=== PATIENT | male | born 1990 | race Caucasian/White ===

== ENCOUNTER 2017-03-27 19:18 | Emergency (ER) | payer SELFPAY ==
[2017-03-27] MEDS ORDERED: Sodium Chloride 0.9% 5 ML Syringe FLUSH PRN (19:43)
[2017-03-27] MEDS ORDERED: Sodium Chloride 0.9% 1,000 ML IV ONE (19:43)
--- NOTE | 2017-03-27 19:48 | EDM.PDOC ---
ED HPI GENERAL MEDICAL PROBLEM - General Chief Complaint: Syncope Stated Complaint: SYNCOPAL EPISODE Time Seen by Provider: 03/27/17 19:30 Source of Information: Reports: Patient, EMS History Limitations: Reports: No Limitations - History of Present Illness INITIAL COMMENTS - FREE TEXT/NARRATIVE: 26 YO WM presents to ER after syncopal episode while working today. 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 Pt denies any pain or injury at this time. Pt denies chest pain, shortness of breath, nausea/vomiting or recent illness. Pt denies fever/chills but states he has had a cough for the last 3 days. Onset: Today Duration: Hour(s): (1) Location: Reports: Generalized Severity: Mild Improves with: Reports: None Worsens with: Reports: None Associated Symptoms: Reports: Cough, Syncope, Weakness. Denies: Confusion, Chest Pain, cough w sputum, Diaphoresis, Fever/Chills, Loss of Appetite, Nausea/ Vomiting, Seizure, Shortness of Breath - Related Data Allergies Allergy/AdvReac Type Severity Reaction Status Date / Time No Known Allergies Allergy Verified 03/27/17 20:21 Home Meds: Home Meds . [No Known Home Meds] 07/31/14 [History] Past Medical History - Past Health History Medical/Surgical History: Denies Medical/Surgical History Social & Family History - Tobacco Use Smoking Status *Q: Never Smoker - Alcohol Use Days Per Week of Alcohol Use: 0 - Recreational Drug Use Recreational Drug Use: No ED ROS GENERAL - Review of Systems Review Of Systems: See Below Constitutional: Reports: No Symptoms HEENT: Reports: No Symptoms Respiratory: Reports: No Symptoms Cardiovascular: Reports: No Symptoms Endocrine: Reports: No Symptoms GI/Abdominal: Reports: No Symptoms : Reports: No Symptoms Musculoskeletal: Reports: No Symptoms Skin: Reports: No Symptoms Neurological: Reports: Dizziness Psychiatric: Reports: No Symptoms Hematologic/Lymphatic: Reports: No Symptoms Immunologic: Reports: No Symptoms - Physical Exam Exam: See Below Exam Limited By: No Limitations General Appearance: Alert, WD/WN, No Apparent Distress Eye Exam: Bilateral Eye: EOMI, PERRL Ears: Normal External Exam, Normal Canal, Hearing Grossly Normal, Normal TMs Throat/Mouth: Normal Inspection, Normal Lips, Normal Teeth, Normal Gums, Normal Oropharynx, Normal Voice, No Airway Compromise Head Exam: Atraumatic, Normocephalic Neck: Normal Inspection, Supple, Non-Tender, Full Range of Motion Respiratory/Chest: No Respiratory Distress, Lungs Clear, Normal Breath Sounds, No Accessory Muscle Use, Chest Non-Tender Cardiovascular: Normal Peripheral Pulses, Regular Rate, Rhythm, No Edema, No Gallop, No JVD, No Murmur, No Rub GI/Abdominal: Normal Bowel Sounds, Soft, Non-Tender, No Organomegaly, No Distention, No Abnormal Bruit, No Mass Neuro Exam (Abbreviated): Alert, Oriented, CN II-XII Intact, Normal Cognition, Normal Gait, Normal Reflexes, No Motor/Sensory Deficits Back Exam: Normal Inspection, Full Range of Motion, NT Extremities: Normal Inspection, Normal Range of Motion, Non-Tender, No Pedal Edema, Normal Capillary Refill Psychiatric: Normal Affect, Normal Mood Skin Exam: Warm, Dry, Intact, Normal Color, No Rash EKG INTERPRETATION EKG Date: 03/27/17 Time: 20:06 Rhythm: NSR Rate (Beats/Min): 88 [place]: Normal P-Wave: Present QRS: Normal ST-T: Normal QT: Normal Comparison: NA - No Prior EKG Course - Vital Signs Last Recorded V/S: Last Vital Signs Temp 37.7 C 03/27/17 20:22 Pulse 95 03/27/17 19:57 Resp 14 03/27/17 19:57 BP 146/85 H 03/27/17 19:57 Pulse Ox 99 03/27/17 19:57 - Orders/Labs/Meds Orders: Active Orders 24 hr Category Date Time Status EKG Documentation Completion [RC] ASDIRECTED Care 03/27/17 19:43 Active Peripheral IV Care [RC] . DIRECTED Care 03/27/17 19:43 Active Chest 2V [CR] Stat Exams 03/27/17 19:43 Taken Head wo Cont [CT] Stat Exams 03/27/17 19:43 Taken INFLUENZA A+B AG SCREEN [RM] Stat Lab 03/27/17 20:18 Ordered Sodium Chloride 0.9% [Syrex Flush] Med 03/27/17 19:43 Active 5 ml FLUSH Q8HR PRN Peripheral IV Insertion Adult [OM.PC] Routine Oth 03/27/17 19:43 Ordered EKG 12 Lead [EK] Routine Ther 03/27/17 19:43 Ordered Medication Orders Sodium Chloride (Syrex Flush) 5 ml FLUSH Q8HR PRN PRN Reason: Keep Vein Open Labs: Laboratory Tests 03/27/17 03/27/17 03/27/17 Range/Units 19:15 19:15 19:43 WBC 7.0 (5.0-10.0) 10^3/uL RBC 5.27 (4.50-6.00) 10^6/uL Hgb 14.8 (13.0-17.0) g/dL Hct 44.3 (40.0-52.0) % MCV 84.0 (82.0-92.0) fL MCH 28.0 (27.0-31.0) pg MCHC 33.4 (32.0-36.0) g/dL RDW 12.3 (11.5-14.5) % Plt Count 252 (150-300) 10^3/uL MPV 8.1 (7.4-10.4) fL Neut % (Auto) 54.3 (50.0-70.0) % Lymph % (Auto) 35.4 (20.0-40.0) % [place] % (Auto) 7.8 (2.0-8.0) % Eos % (Auto) 2.2 (1.0-3.0) % Baso % (Auto) 0.3 (0.0-1.0) % Neut # (Auto) 3.8 (2.5-7.0) 10^3/uL Lymph # (Auto) 2.5 (1.0-4.0) 10^3/uL [place] # (Auto) 0.5 (0.1-0.8) 10^3/uL Eos # (Auto) 0.2 (0.1-0.3) 10^3/uL Baso # (Auto) 0.0 (0.0-0.1) 10^3/uL Sodium 141 (136-145) mmol/L Potassium 3.4 (3.3-5.3) mmol/L Chloride 103 (98-115) mmol/L Carbon Dioxide 28.0 (21.0-32.0) mmol/L BUN 13 (6-25) mg/dL Creatinine 0.81 (0.51-1.17) mg/dL Est Cr Clr Drug Dosing TNP Estimated GFR (MDRD) > 60 mL/min Glucose 87 (70-110) mg/dL Calcium 8.9 (8.7-10.3) mg/dL Creatine Kinase 235 (26-276) U/L CK-MB (CK-2) 1.40 (0.00-4.30) ng/mL Troponin I < 0.04 (0.00-0.070) ng/mL Urine Opiates Screen Negative (NEGATIVE) Ur Oxycodone Screen Negative (NEGATIVE) Urine Methadone Screen Negative (NEGATIVE) Ur Propoxyphene Screen Negative (NEGATIVE) Ur Barbiturates Screen Negative (NEGATIVE) Ur Tricyclics Screen Negative (NEGATIVE) Ur Phencyclidine Scrn Negative (NEGATIVE) Ur Amphetamine Screen Negative (NEGATIVE) U Methamphetamines Scrn Negative (NEGATIVE) U Benzodiazepines Scrn Negative (NEGATIVE) U Cocaine Metab Screen Negative (NEGATIVE) U Marijuana (THC) Screen Negative (NEGATIVE) Meds: Medications Generic Name Dose Route Start Last Admin Trade Name Freq PRN Reason Stop Dose Admin Sodium Chloride 5 ml 03/27/17 19:43 Syrex Flush FLUSH Q8HR PRN Keep Vein Open Discontinued Medications Generic Name Dose Route Start Last Admin Trade Name Freq PRN Reason Stop Dose Admin Sodium Chloride 1,000 mls @ 999 mls/hr 03/27/17 19:43 Normal Saline IV 03/27/17 20:43 .BOLUS ONE - Radiology Interpretation Free Text/Narrative:: CT head- NAD CXR- NAD - Re-Assessments/Exams Free Text/Narrative Re-Assessment/Exam: 03/27/17 20:44 influenza A and B- negative Departure - Departure Time of Disposition: 20:44 Disposition: Home, Self-Care 01 Condition: Good Clinical Impression: Syncope Qualifiers: Encounter type: initial encounter - Discharge Information Instructions: Syncope, [id number] Referrals: PCP,Not In Area [Primary Care Provider] - Forms: ED Department Discharge - My Orders Last 24 Hours: My Active Orders 03/27/17 19:43 EKG Documentation Completion [RC] ASDIRECTED Peripheral IV Care [RC] . DIRECTED Chest 2V [CR] Stat Head wo Cont [CT] Stat Sodium Chloride 0.9% [Syrex Flush] 5 ml FLUSH Q8HR PRN Peripheral IV Insertion Adult [OM.PC] Routine EKG 12 Lead [EK] Routine 03/27/17 20:18 INFLUENZA A+B AG SCREEN [RM] Stat - Assessment/Plan Last 24 Hours: My Active Orders 03/27/17 19:43 EKG Documentation Completion [RC] ASDIRECTED Peripheral IV Care [RC] . DIRECTED Chest 2V [CR] Stat Head wo Cont [CT] Stat Sodium Chloride 0.9% [Syrex Flush] 5 ml FLUSH Q8HR PRN Peripheral IV Insertion Adult [OM.PC] Routine EKG 12 Lead [EK] Routine 03/27/17 20:18 INFLUENZA A+B AG SCREEN [RM] Stat Assessment:: 1. Syncope Plan: 1. follow up with PCP for further evaluation and treatment 2. discharge home 3. return to ER for worsening symptoms
[2017-03-27 20:12] LABS: CHLORIDE,CL 103 mmol/L (98-115); SODIUM,NA 141 mmol/L (136-145)
[2017-03-27 20:16] VITALS: BP 146/85
== END 2017-03-27 21:00 | disposition home or self-care (01) ==
LOC: KA.ED 19:18
DX: R55 Syncope and collapse (principal)
CPT/HCPCS: 70450; 71046; 80048; 80305; 82550; 82553; 84484; 85025; 87804; 93005; 96360; 99285; J7030

== ENCOUNTER 2017-04-09 15:12 | Observation (INO) | payer MEDICAID ==
[2017-04-09] MEDS ORDERED: Sodium Chloride 0.9% 5 ML Syringe FLUSH PRN (15:35)
[2017-04-09 16:11] LABS: CHLORIDE,CL 104 mmol/L (98-115); SODIUM,NA 142 mmol/L (136-145)
[2017-04-09] MEDS ORDERED: LORazepam 2 MG/ML MDV IVPUSH ONE (16:17)
[2017-04-09] MEDS ORDERED: LORazepam 2 MG/ML MDV ONE (16:21)
--- NOTE | 2017-04-09 16:30 | EDM.PDOC ---
ED HPI GENERAL MEDICAL PROBLEM - General Chief Complaint: General Stated Complaint: passed out Time Seen by Provider: 04/09/17 15:51 Source of Information: Reports: Patient History Limitations: Reports: No Limitations - History of Present Illness INITIAL COMMENTS - FREE TEXT/NARRATIVE: Patient is a 26-year-old gentleman who presents to the emergency Department via EMS secondary to altered mental status and suspected seizure. Patient was found on side walk and was suspected to have lost consciousness. Patient states he was walking to work and did not remember passing out. Patient does have a history of seizures but is currently not taking any medication. Was on Depakote 6 years ago. Patient was seen here in the emergency department on for similar symptoms. Patient denies headache, chest pain, shortness of breath, nausea, vomiting, diarrhea, drug use, alcohol, or any injury. Onset: Today Onset Date: 04/09/17 Severity: Mild Improves with: Reports: None Associated Symptoms: Reports: Seizure - Related Data Allergies Allergy/AdvReac Type Severity Reaction Status Date / Time No Known Allergies Allergy Verified 04/09/17 15:25 Home Meds: Home Meds guaiFENesin [Cough Syrup] 5 ml PO QID PRN 04/09/17 [History] Past Medical History - Past Health History Medical/Surgical History: Denies Medical/Surgical History Neurological History: Reports: Seizure Other Neuro History: Pt states he used to have seizures but was taken off meds approximately 5 yrs ago Social & Family History - Tobacco Use Smoking Status *Q: Former Smoker Years of Tobacco use: 2 Packs/Tins Daily: 0.3 Used Tobacco, but Quit: Yes Month Tobacco Last Used: February - Caffeine Use Caffeine Use: Reports: Energy Drinks, Soda - Alcohol Use Days Per Week of Alcohol Use: 0 - Recreational Drug Use Recreational Drug Use: No ED ROS GENERAL - Review of Systems Review Of Systems: ROS reveals no pertinent complaints other than HPI. Constitutional: Reports: No Symptoms HEENT: Reports: No Symptoms Respiratory: Reports: No Symptoms Cardiovascular: Reports: No Symptoms Endocrine: Reports: No Symptoms GI/Abdominal: Reports: No Symptoms : Reports: No Symptoms Musculoskeletal: Reports: No Symptoms Skin: Reports: No Symptoms Neurological: Reports: Confusion, Seizure, Syncope Psychiatric: Reports: No Symptoms Hematologic/Lymphatic: Reports: No Symptoms Immunologic: Reports: No Symptoms ED EXAM, GENERAL - Physical Exam Exam: See Below Exam Limited By: No Limitations General Appearance: Alert, WD/WN, No Apparent Distress Eye Exam: Bilateral Eye: Normal Inspection Ears: Normal External Exam, Normal Canal, Normal TMs Nose: Normal Inspection, Normal Mucosa, No Blood Throat/Mouth: Normal Inspection, Normal Oropharynx, No Airway Compromise Head: Atraumatic, Normocephalic Neck: Normal Inspection, Supple, Non-Tender, Full Range of Motion Respiratory/Chest: No Respiratory Distress, Lungs Clear, Normal Breath Sounds, No Accessory Muscle Use, Chest Non-Tender Cardiovascular: Regular Rate, Rhythm, No Murmur GI/Abdominal: Normal Bowel Sounds, Soft, Non-Tender, No Organomegaly, No Distention, No Abnormal Bruit, No Mass Back Exam: Normal Inspection. No: CVA Tenderness (L), CVA Tenderness (R) Extremities: Normal Inspection, Normal Range of Motion, Non-Tender, No Pedal Edema Neurological: Alert, Oriented, CN II-XII Intact, Normal Cognition Psychiatric: Flat Affect (Typical for patient per ER nurse who knows patient well.) Skin Exam: Warm, Dry, Intact, Normal Color, No Rash Lymphatic: No Adenopathy EKG INTERPRETATION EKG Date: 04/09/17 Time: 16:10 Rhythm: NSR Rate (Beats/Min): 82 [place]: Normal P-Wave: Present QRS: Normal ST-T: Normal QT: Normal Comparison: NA - No Prior EKG Course - Orders/Labs/Meds Orders: Active Orders 24 hr Category Date Time Status EKG Documentation Completion [RC] ASDIRECTED Care 04/09/17 15:53 Ordered Chest 2V [CR] Stat Exams 04/09/17 15:52 Ordered Sodium Chloride 0.9% [Syrex Flush] Med 04/09/17 15:35 Active 5 ml FLUSH Q8HR PRN Saline Lock Insert [OM.PC] Routine Oth 04/09/17 15:35 Ordered Medication Orders Sodium Chloride (Syrex Flush) 5 ml FLUSH Q8HR PRN PRN Reason: Keep Vein Open Labs: Laboratory Tests 04/09/17 04/09/17 04/09/17 Range/Units 15:40 15:40 15:45 WBC 5.4 (5.0-10.0) 10^3/uL RBC 5.32 (4.50-6.00) 10^6/uL Hgb 14.9 (13.0-17.0) g/dL Hct 44.5 (40.0-52.0) % MCV 83.7 (82.0-92.0) fL MCH 28.0 (27.0-31.0) pg MCHC 33.5 (32.0-36.0) g/dL RDW 12.2 (11.5-14.5) % Plt Count 266 (150-300) 10^3/uL MPV 7.2 L (7.4-10.4) fL Neut % (Auto) 51.3 (50.0-70.0) % Lymph % (Auto) 34.9 (20.0-40.0) % [place] % (Auto) 11.4 H (2.0-8.0) % Eos % (Auto) 2.1 (1.0-3.0) % Baso % (Auto) 0.3 (0.0-1.0) % Neut # (Auto) 2.8 (2.5-7.0) 10^3/uL Lymph # (Auto) 1.9 (1.0-4.0) 10^3/uL [place] # (Auto) 0.6 (0.1-0.8) 10^3/uL Eos # (Auto) 0.1 (0.1-0.3) 10^3/uL Baso # (Auto) 0.0 (0.0-0.1) 10^3/uL Sodium (136-145) mmol/L Potassium (3.3-5.3) mmol/L Chloride (98-115) mmol/L Carbon Dioxide (21.0-32.0) mmol/L BUN (6-25) mg/dL Creatinine (0.51-1.17) mg/dL Est Cr Clr Drug Dosing mL/min Estimated GFR (MDRD) mL/min Glucose (70-110) mg/dL Calcium (8.7-10.3) mg/dL Specimen Type Urinvoid Urine Color Light yellow (YELLOW) Urine Appearance Clear (CLEAR) Urine pH 6.5 (5.0-9.0) Ur Specific [place] <= 1.005 (1.005-1.030) Urine Protein Negative (NEGATIVE) mg/dL Urine Glucose (UA) Negative (NEGATIVE) mg/dL Urine Ketones Negative (NEGATIVE) mg/dL Urine Occult Blood Negative (NEGATIVE) Urine Nitrite Negative (NEGATIVE) Urine Bilirubin Negative (NEGATIVE) Urine Urobilinogen 0.2 (0.2-1.0) E.U./dL Ur Leukocyte Esterase Negative (NEGATIVE) Urine RBC 0-5 /HPF Urine WBC 0-5 /HPF Ur Epithelial Cells Rare /LPF Urine Bacteria Rare (NONE TO FEW) /HPF Urine Opiates Screen Negative (NEGATIVE) Ur Oxycodone Screen Negative (NEGATIVE) Urine Methadone Screen Negative (NEGATIVE) Ur Propoxyphene Screen Negative (NEGATIVE) Ur Barbiturates Screen Negative (NEGATIVE) Ur Tricyclics Screen Negative (NEGATIVE) Ur Phencyclidine Scrn Negative (NEGATIVE) Ur Amphetamine Screen Negative (NEGATIVE) U Methamphetamines Scrn Negative (NEGATIVE) U Benzodiazepines Scrn Negative (NEGATIVE) U Cocaine Metab Screen Negative (NEGATIVE) U Marijuana (THC) Screen Negative (NEGATIVE) 04/09/17 Range/Units 15:45 WBC (5.0-10.0) 10^3/uL RBC (4.50-6.00) 10^6/uL Hgb (13.0-17.0) g/dL Hct (40.0-52.0) % MCV (82.0-92.0) fL MCH (27.0-31.0) pg MCHC (32.0-36.0) g/dL RDW (11.5-14.5) % Plt Count (150-300) 10^3/uL MPV (7.4-10.4) fL Neut % (Auto) (50.0-70.0) % Lymph % (Auto) (20.0-40.0) % [place] % (Auto) (2.0-8.0) % Eos % (Auto) (1.0-3.0) % Baso % (Auto) (0.0-1.0) % Neut # (Auto) (2.5-7.0) 10^3/uL Lymph # (Auto) (1.0-4.0) 10^3/uL [place] # (Auto) (0.1-0.8) 10^3/uL Eos # (Auto) (0.1-0.3) 10^3/uL Baso # (Auto) (0.0-0.1) 10^3/uL Sodium 142 (136-145) mmol/L Potassium 4.1 (3.3-5.3) mmol/L Chloride 104 (98-115) mmol/L Carbon Dioxide 26.7 (21.0-32.0) mmol/L BUN 12 (6-25) mg/dL Creatinine 0.72 (0.51-1.17) mg/dL Est Cr Clr Drug Dosing 168.50 mL/min Estimated GFR (MDRD) > 60 mL/min Glucose 97 (70-110) mg/dL Calcium 8.8 (8.7-10.3) mg/dL Specimen Type Urine Color (YELLOW) Urine Appearance (CLEAR) Urine pH (5.0-9.0) Ur Specific [place] (1.005-1.030) Urine Protein (NEGATIVE) mg/dL Urine Glucose (UA) (NEGATIVE) mg/dL Urine Ketones (NEGATIVE) mg/dL Urine Occult Blood (NEGATIVE) Urine Nitrite (NEGATIVE) Urine Bilirubin (NEGATIVE) Urine Urobilinogen (0.2-1.0) E.U./dL Ur Leukocyte Esterase (NEGATIVE) Urine RBC /HPF Urine WBC /HPF Ur Epithelial Cells /LPF Urine Bacteria (NONE TO FEW) /HPF Urine Opiates Screen (NEGATIVE) Ur Oxycodone Screen (NEGATIVE) Urine Methadone Screen (NEGATIVE) Ur Propoxyphene Screen (NEGATIVE) Ur Barbiturates Screen (NEGATIVE) Ur Tricyclics Screen (NEGATIVE) Ur Phencyclidine Scrn (NEGATIVE) Ur Amphetamine Screen (NEGATIVE) U Methamphetamines Scrn (NEGATIVE) U Benzodiazepines Scrn (NEGATIVE) U Cocaine Metab Screen (NEGATIVE) U Marijuana (THC) Screen (NEGATIVE) Meds: Medications Generic Name Dose Route Start Last Admin Trade Name Freq PRN Reason Stop Dose Admin Sodium Chloride 5 ml 04/09/17 15:35 Syrex Flush FLUSH Q8HR PRN Keep Vein Open Discontinued Medications Generic Name Dose Route Start Last Admin Trade Name Freq PRN Reason Stop Dose Admin Lorazepam 1 mg 04/09/17 16:17 Ativan IVPUSH 04/09/17 16:18 ONETIME ONE Lorazepam Confirm 04/09/17 16:21 Ativan Administered 04/09/17 16:22 Dose 2 mg .ROUTE .STK-MED ONE - Radiology Interpretation Free Text/Narrative:: Chest x-ray negative for acute cardiopulmonary process - Re-Assessments/Exams Free Text/Narrative Re-Assessment/Exam: 04/09/17 17:16 Patient afebrile, nontoxic appearing, vital signs stable. Patient did have seizure activity while in the emergency department, was given 1 mg of Ativan and has no seizure activity since. Discussed case with [facility] provider and he will admit patient for observation and will follow. Departure - Departure Time of Disposition: 17:18 Disposition: Refer to Observation Condition: Fair Clinical Impression: Seizure - Discharge Information Referrals: PCP,Not In Area [Primary Care Provider] - - My Orders Last 24 Hours: My Active Orders 04/09/17 15:35 Sodium Chloride 0.9% [Syrex Flush] 5 ml FLUSH Q8HR PRN Saline Lock Insert [OM.PC] Routine 04/09/17 15:52 Chest 2V [CR] Stat 04/09/17 15:53 EKG Documentation Completion [RC] ASDIRECTED - Assessment/Plan Last 24 Hours: My Active Orders 04/09/17 15:35 Sodium Chloride 0.9% [Syrex Flush] 5 ml FLUSH Q8HR PRN Saline Lock Insert [OM.PC] Routine 04/09/17 15:52 Chest 2V [CR] Stat 04/09/17 15:53 EKG Documentation Completion [RC] ASDIRECTED Assessment:: Seizure Plan: Admit to [facility] provider for observation
[2017-04-09] MEDS ORDERED: guaiFENesin 100 MG/5 ML Soln 5 ML UD Cup PO PRN (19:26)
[2017-04-09] MEDS ORDERED: LORazepam 2 MG/ML MDV IVPUSH PRN (19:28)
[2017-04-09] MEDS ORDERED: Divalproex Sodium Delayed-Release 250 MG Tab.CR ONE (21:21)
[2017-04-09] MEDS: Divalproex Sodium Delayed-Release 250 MG Tab.CR PO SCH (21:22)
[2017-04-10] MEDS: Divalproex Sodium Delayed-Release 250 MG Tab.CR PO SCH ×2 (08:09→18:03)
--- NOTE | 2017-04-10 09:49 | PCM.HP ---
H&P History of Present Illness - General Date of Service: 04/10/17 Source of Information: Patient, Old Records, RN - History of Present Illness Initial Comments - Free Text/Narative: Patient is a 26-year-old gentleman admitted through the ED yesterday due to altered mental status and suspected seizure. He was found on side walk and was suspected to have lost consciousness. Patient states he was walking to work and did not remember passing out but remembers waking up starring at the [place]. Patient does have a history of seizures and was removed from [facility] about 6 years ago by his neurologist per patient report. He had been in the ED on 2017 for similar symptoms. At that time he had syncopal episode while at work. He became lightheaded and dizzy and passed out. He denied pain or injury at this time, no chest pain, shortness of breath, nausea/vomiting or recent illness. Pt denied fever/chills but stated he has had a cough for the last [address] and labs were normal. Neg CXR, treated and released, however he never followed up with PCP. - Related Data Allergies/Adverse Reactions: Allergies Allergy/AdvReac Type Severity Reaction Status Date / Time No Known Allergies Allergy Verified 04/09/17 15:25 Home Medications: Home Meds guaiFENesin [Cough Syrup] 5 ml PO QID PRN 04/09/17 [History] Past Medical History - Past Health History Medical/Surgical History: Denies Medical/Surgical History Respiratory History: Reports: Asthma Other Respiratory History: supposed to be on an MDI Neurological History: Reports: Seizure Other Neuro History: Pt states he used to have seizures but was taken off meds approximately 5 yrs ago Psychiatric History: Reports: Other (See Below) Other Psychiatric History: mentally slow Endocrine/Metabolic History: Reports: Obesity/BMI 30+ - Infectious Disease History Infectious Disease History: Reports: Chicken Pox, Influenza, Shingles - Past Surgical History Endocrine Surgical History: Reports: None Social & Family History - Family History Family Medical History: Unobtainable - Tobacco Use Smoking Status *Q: Former Smoker Years of Tobacco use: 7 Packs/Tins Daily: 0.2 Used Tobacco, but Quit: Yes Month Tobacco Last Used: December Second Hand Smoke Exposure: Yes - Caffeine Use Caffeine Use: Reports: Coffee - Alcohol Use Days Per Week of Alcohol Use: 4 Number of Drinks Per Day: 0 Total Drinks Per Week: 0 - Recreational Drug Use Recreational Drug Use: No H&P Review of Systems - Review of Systems: Review Of Systems: See Below General: Reports: No Symptoms HEENT: Reports: No Symptoms Pulmonary: Reports: Cough Cardiovascular: Reports: No Symptoms Gastrointestinal: Reports: No Symptoms Genitourinary: Reports: No Symptoms Musculoskeletal: Reports: No Symptoms Skin: Reports: No Symptoms Psychiatric: Reports: No Symptoms Neurological: Reports: No Symptoms Hematologic/Lymphatic: Reports: No Symptoms Immunologic: Reports: No Symptoms Exam - Exam Exam: See Below - Vital Signs Vital Signs: Last Vital Signs Temp 97.8 F 04/10/17 06:54 Pulse 70 04/10/17 06:54 Resp 16 04/10/17 06:54 BP 118/74 04/10/17 06:54 Pulse Ox 95 04/10/17 06:54 Weight: 221 lb 1.6 oz - Exam Quality Assessment: No: Supplemental Oxygen General: Alert, Oriented, 4 HEENT: Conjunctiva Clear, EACs Clear, EOMI, Hearing Intact, Mucosa Moist & [place] , Nares Patent, Posterior Pharynx Clear, PERRLA Neck: Supple, Trachea Midline, 2 Lungs: Clear to Auscultation, Normal Respiratory Effort Cardiovascular: Regular Rate, Regular Rhythm GI/Abdominal Exam: Normal Bowel Sounds, Soft, Non-Tender, No Organomegaly, No Distention, No Abnormal Bruit, No Mass, Pelvis Stable (Male) Exam: Deferred Rectal (Males) Exam: Deferred Extremities: No Pedal Edema Skin: Warm, Dry, Intact Neurological: Cranial Nerves Intact, Reflexes Equal Bilateral Neuro Extensive - Mental Status: Alert, Oriented x3, Normal Mood/Affect, Normal Cognition Neuro Extensive - Motor, Sensory, Reflexes: CN II-XII Intact, Normal Reflexes, Dysarthria, Other (While talking to the patient I noticed patient stretching his arms in front of him and yawning appeared to have seizure-like activity, however he had no postictal manifestations and he was able to talk to me calmly and lucidly within a few seconds afterwards.) Psychiatric: Alert, Normal Affect, Labile Mood - Patient Data Result Diagrams: 04/09/17 15:45 04/09/17 15:45 *Q Meaningful Use (ADM) - VTE *Q VTE Criteria *Q: - Stroke *Q Stroke Criteria *Q: - AMI *Q AMI Criteria *Q: Problem List Initiated/Reviewed/Updated: Yes Orders Last 24hrs: Active Orders 24 hr Category Date Time Status Patient Status [ADT] Routine ADT 04/09/17 19:26 Ordered Up ad Jessica [RC] ASDIRECTED Care 04/09/17 19:26 Active Vital Signs [RC] 0700,1500,2300 Care 04/09/17 19:26 Active Consult to Value Analysis Coordinator [CONS] Routine Cons 04/09/17 20:29 Active Acetaminophen [Tylenol] Med 04/09/17 19:26 Active 650 mg PO Q4H PRN Divalproex Sodium Med 04/10/17 08:00 Active 500 mg PO BIDMEALS LORazepam [Ativan] Med 04/09/17 19:28 Active 0.5 mg IVPUSH Q4H PRN guaiFENesin [Robitussin] Med 04/09/17 19:26 Active 100 mg PO QID PRN Seizure Precautions [OM.PC] Routine Oth 04/09/17 19:31 Ordered Medication Orders Acetaminophen (Tylenol) 650 mg PO Q4H PRN PRN Reason: analgesia/fever Divalproex Sodium (Divalproex Sodium) 500 mg PO BIDMEALS VIKAS Last Admin: 04/10/17 08:09 Dose: 500 mg Admin: 04/09/17 21:22 Dose: 500 mg Guaifenesin (Robitussin) 100 mg PO QID PRN PRN Reason: Cough Lorazepam (Ativan) 0.5 mg IVPUSH Q4H PRN PRN Reason: Seizures Sodium Chloride (Syrex Flush) 5 ml FLUSH Q8HR PRN PRN Reason: Keep Vein Open Last Admin: 04/09/17 16:29 Dose: 5 ml Assessment/Plan Comment:: Patient is a 26-year-old gentleman admitted through the ED yesterday due to altered mental status and suspected seizure. He was found on side walk and was suspected to have lost consciousness. Patient states he was walking to work and did not remember passing out but remembers waking up starring at the [place]. Patient does have a history of seizures and was removed from [facility] about 6 years ago by his neurologist per patient report. He had been in the ED on 2017 for similar symptoms. At that time he had syncopal episode while at work. He became lightheaded and dizzy and passed out. He denied pain or injury at this time, no chest pain, shortness of breath, nausea/vomiting or recent illness. Pt denied fever/chills but stated he has had a cough for the last [address] and labs were normal. Neg CXR, treated and released, however he never followed up with PCP. Update. On rounds this morning while performing this history and physical it appeared the patient may have had seizure as evidence of outstretched arms and yawning, lasting just a few seconds. 1 mg Ativan IV given. Impression; Likely seizure activity however patient does not have any postictal manifestations. seizures precautions, MRI this as outpatient, Neurology consultation as outpatient. Likely will need EEG Monitor for any ongoing seizure-like activity.. IV Ativan now and as needed. Seizure precautions. Continue with Depakote.
[2017-04-10] MEDS ORDERED: LORazepam 2 MG/ML MDV IVPUSH ONE (10:35)
[2017-04-10] MEDS: Acetaminophen 325 MG Tab PO PRN ×2 (14:57→20:01)
[2017-04-10] MEDS ORDERED: LORazepam 2 MG/ML MDV IVPUSH PRN (15:19)
[2017-04-11] MEDS: LORazepam 2 MG/ML MDV IVPUSH PRN ×3 (00:03→00:27)
[2017-04-11] MEDS ORDERED: LORazepam 2 MG/ML MDV IVPUSH ONE (00:25)
[2017-04-11 01:13] VITALS: BP 123/83
--- NOTE | 2017-04-11 01:30 | PCM.PN ---
- General Info Date of Service: 03/11/17 Admission Dx/Problem (Free Text): I was notified via telephone that patient was having stiffening episodes without post - ictal lethargy. He had been given Lorazepam (Ativan) 0.5 mgm IV x3 doses in 30 minutes. Patient continued to have episodes of complete stiffening of the body for 10-15 seconds and then relax. Answered questions immediately after the episodes. These episodes were sporadic occurring from every 2-10 minutes. No focal weakness. Vitals stable except for the mild elevated temp to 99.4. Admission to [facility] was approximately 30 hours ago. Has had Depakote 500 mgm x3 doses (bid). Has had Ativan 0.5 mgm IV prn for the seizures. Due to continued stiffening - seizures not resolving with IV ativan [facility] was notified and patient is transferred to [facility] via ambulance. - Review of Systems General: Reports: Fever HEENT: Reports: No Symptoms Pulmonary: Reports: No Symptoms Cardiovascular: Reports: No Symptoms Gastrointestinal: Reports: No Symptoms Genitourinary: Reports: No Symptoms Musculoskeletal: Reports: No Symptoms Skin: Reports: No Symptoms Neurological: Reports: Seizure, Other - Patient Data Vitals - Most Recent: Last Vital Signs Temp 99.2 F 04/11/17 01:12 Pulse 84 04/11/17 01:12 Resp 18 04/11/17 01:12 BP 123/83 04/11/17 01:12 Pulse Ox 94 L 04/11/17 01:12 Weight - Most Recent: 221 lb 1.6 oz I&O - Last 24 Hours: Intake & Output 04/10/17 04/10/17 04/11/17 14:59 22:59 06:59 Intake Total 1999 2519 Output Total 1749 2975 Balance 250 -455 Med Orders - Current: Current Medications Acetaminophen (Tylenol) 650 mg PO Q4H PRN PRN Reason: analgesia/fever Last Admin: 04/10/17 20:01 Dose: 650 mg Divalproex Sodium (Divalproex Sodium) 500 mg PO BIDMEALS VIKAS Last Admin: 04/10/17 18:03 Dose: 500 mg Guaifenesin (Robitussin) 100 mg PO QID PRN PRN Reason: Cough Lorazepam (Ativan) 0.5 mg IVPUSH Q4H PRN PRN Reason: seizure Last Admin: 04/11/17 00:27 Dose: 0.5 mg Sodium Chloride (Syrex Flush) 5 ml FLUSH Q8HR PRN PRN Reason: Keep Vein Open Last Admin: 04/09/17 16:29 Dose: 5 ml Discontinued Medications Divalproex Sodium (Divalproex Sodium) Confirm Administered Dose 500 mg .ROUTE .STK-MED ONE Stop: 04/09/17 21:22 Last Admin: 04/09/17 21:27 Dose: Not Given Lorazepam (Ativan) 1 mg IVPUSH ONETIME ONE Stop: 04/09/17 16:18 Last Admin: 04/09/17 16:25 Dose: 1 mg Lorazepam (Ativan) Confirm Administered Dose 2 mg .ROUTE .STK-MED ONE Stop: 04/09/17 16:22 Last Admin: 04/09/17 21:10 Dose: Not Given Lorazepam (Ativan) 0.5 mg IVPUSH Q4H PRN PRN Reason: Seizures Lorazepam (Ativan) 1 mg IVPUSH ONETIME ONE Stop: 04/10/17 10:36 Last Admin: 04/10/17 10:00 Dose: 1 mg - Problem List Review Problem List Initiated/Reviewed/Updated: Yes - Plan Plan:: Patient is a 26-year-old gentleman admitted through the ED yesterday due to altered mental status and suspected seizure. He was found on side walk and was suspected to have lost consciousness. Patient states he was walking to work and did not remember passing out but remembers waking up starring at the [place]. Patient does have a history of seizures and was removed from [facility] about 6 years ago by his neurologist per patient report. He had been in the ED on 2017 for similar symptoms. At that time he had syncopal episode while at work. He became lightheaded and dizzy and passed out. He denied pain or injury at this time, no chest pain, shortness of breath, nausea/vomiting or recent illness. Pt denied fever/chills but stated he has had a cough for the last [address] and labs were normal. Neg CXR, treated and released, however he never followed up with PCP. Impression; Partial Seizures, seizures precautions, MRI, Neurology
== END 2017-04-11 01:55 ==
LOC: KA.ED 15:12 → KA.MS 17:30 → UNDODISOB 04-11 01:55
PROVIDERS: ADMIT Physician Assistant Surgical; ATTEND Physician Assistant
DX: R56.9 Unspecified convulsions (principal); J45.909 Unspecified asthma, uncomplicated; E66.9 Obesity, unspecified; Z68.30 Body mass index [BMI] 30.0-30.9, adult; Z87.891 Personal history of nicotine dependence
CPT/HCPCS: 71046; 80048; 80305; 81001; 85025; 93005; 96374; 96376; 99284; 99285; A9270-GY; G0378; J2060

== ENCOUNTER 2017-04-16 15:10 | Emergency (ER) | payer MEDICAID ==
[2017-04-16] MEDS ORDERED: LORazepam 2 MG/ML MDV IVPUSH ONE ×2 (15:16→15:18)
[2017-04-16] MEDS ORDERED: Sodium Chloride 0.9% 1,000 ML IV ONE (15:16)
[2017-04-16 15:30] VITALS: BP 148/94
--- NOTE | 2017-04-16 15:34 | EDM.PDOC ---
ED HPI GENERAL MEDICAL PROBLEM - General Chief Complaint: Neurological Problem Stated Complaint: Seizure Time Seen by Provider: 04/16/17 15:10 Source of Information: Reports: Patient, EMS History Limitations: Reports: No Limitations - History of Present Illness INITIAL COMMENTS - FREE TEXT/NARRATIVE: 26 YO WM presents to ER after having a witnessed seizure while at work today. Pt was witnessed sliding down wall and sitting on the ground. EMS arrived and pt was alert and oriented x 4. Pt denies any injury or headache/head trauma. Pt was recently discharged from [facility] 04/11/2017 after evaluation of seizures. Pt has been to ER 3 times with similar episodes over the last month. 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 Pt has an appointment for outpatient psychiatry next month. Pt is currently alert and oriented x 4. Denies fever/chills, nausea/vomiting, headache, chest pain or shortness of breath. Pt denies any suicidal or homicidal ideation. Onset: Today Duration: Chronic Location: Reports: Generalized Improves with: Reports: None Worsens with: Reports: None Associated Symptoms: Reports: No Other Symptoms - Related Data Allergies Allergy/AdvReac Type Severity Reaction Status Date / Time No Known Allergies Allergy Verified 04/16/17 16:06 Home Meds: Home Meds guaiFENesin [Cough Syrup] 5 ml PO QID PRN 04/09/17 [History] Past Medical History - Past Health History Medical/Surgical History: Denies Medical/Surgical History Respiratory History: Reports: Asthma Other Respiratory History: supposed to be on an MDI Neurological History: Reports: Seizure Other Neuro History: Pt states he used to have seizures but was taken off meds approximately 5 yrs ago Psychiatric History: Reports: Other (See Below) Other Psychiatric History: mentally slow Endocrine/Metabolic History: Reports: Obesity/BMI 30+ - Infectious Disease History Infectious Disease History: Reports: Chicken Pox, Influenza, Shingles - Past Surgical History Endocrine Surgical History: Reports: None Social & Family History - Family History Family Medical History: Unobtainable - Tobacco Use Smoking Status *Q: Former Smoker Years of Tobacco use: 7 Packs/Tins Daily: 0.2 Used Tobacco, but Quit: Yes Month Tobacco Last Used: December Second Hand Smoke Exposure: Yes - Caffeine Use Caffeine Use: Reports: Coffee - Alcohol Use Days Per Week of Alcohol Use: 4 Number of Drinks Per Day: 0 Total Drinks Per Week: 0 - Recreational Drug Use Recreational Drug Use: No ED ROS GENERAL - Review of Systems Review Of Systems: See Below Constitutional: Reports: No Symptoms HEENT: Reports: No Symptoms Respiratory: Reports: No Symptoms Cardiovascular: Reports: No Symptoms Endocrine: Reports: No Symptoms GI/Abdominal: Reports: No Symptoms : Reports: No Symptoms Musculoskeletal: Reports: No Symptoms Skin: Reports: No Symptoms Neurological: Reports: No Symptoms Psychiatric: Reports: No Symptoms Hematologic/Lymphatic: Reports: No Symptoms Immunologic: Reports: No Symptoms - Physical Exam Exam: See Below Exam Limited By: No Limitations General Appearance: Alert, WD/WN, No Apparent Distress Eye Exam: Bilateral Eye: EOMI, PERRL Throat/Mouth: Normal Inspection, Normal Lips, Normal Teeth, Normal Gums, Normal Oropharynx, Normal Voice, No Airway Compromise Head Exam: Atraumatic, Normocephalic Neck: Normal Inspection, Supple, Non-Tender, Full Range of Motion Respiratory/Chest: No Respiratory Distress, Lungs Clear, Normal Breath Sounds, No Accessory Muscle Use, Chest Non-Tender Cardiovascular: Normal Peripheral Pulses, Regular Rate, Rhythm, No Edema, No Gallop, No JVD, No Murmur, No Rub GI/Abdominal: Normal Bowel Sounds, Soft, Non-Tender, No Organomegaly, No Distention, No Abnormal Bruit, No Mass Neuro Exam (Abbreviated): Alert, Oriented, CN II-XII Intact, Normal Cognition, Normal Gait, Normal Reflexes, No Motor/Sensory Deficits Back Exam: Normal Inspection, Full Range of Motion, NT Extremities: Normal Inspection, Normal Range of Motion, Non-Tender, No Pedal Edema, Normal Capillary Refill Psychiatric: Normal Mood, Flat Affect Skin Exam: Warm, Dry, Intact, Normal Color, No Rash EKG INTERPRETATION EKG Date: 04/16/17 Time: 15:40 Rhythm: NSR Rate (Beats/Min): 95 [place]: Normal P-Wave: Present QRS: Normal ST-T: Normal QT: Normal Course - Vital Signs Last Recorded V/S: Last Vital Signs Temp 37.3 C 04/16/17 15:18 Pulse 101 H 04/16/17 15:18 Resp 20 04/16/17 15:18 BP 148/94 H 02/12/18 15:18 Pulse Ox 99 04/16/17 15:18 - Orders/Labs/Meds Orders: Active Orders 24 hr Category Date Time Status EKG Documentation Completion [RC] ASDIRECTED Care 04/16/17 15:17 Active Chest 1V Frontal [CR] Stat Exams 04/16/17 15:16 Ordered Head wo Cont [CT] Stat Exams 04/16/17 15:16 Ordered EKG 12 Lead [EK] Routine Ther 04/16/17 15:16 Ordered Labs: Laboratory Tests 04/16/17 04/16/17 04/16/17 Range/Units 15:25 15:25 15:55 WBC 7.0 (5.0-10.0) 10^3/uL RBC 5.28 (4.50-6.00) 10^6/uL Hgb 14.6 (13.0-17.0) g/dL Hct 44.4 (40.0-52.0) % MCV 84.0 (82.0-92.0) fL MCH 27.5 (27.0-31.0) pg MCHC 32.8 (32.0-36.0) g/dL RDW 12.8 (11.5-14.5) % Plt Count 270 (150-300) 10^3/uL MPV 7.1 L (7.4-10.4) fL Neut % (Auto) 64.6 (50.0-70.0) % Lymph % (Auto) 26.9 (20.0-40.0) % [place] % (Auto) 6.4 (2.0-8.0) % Eos % (Auto) 1.9 (1.0-3.0) % Baso % (Auto) 0.2 (0.0-1.0) % Neut # (Auto) 4.6 (2.5-7.0) 10^3/uL Lymph # (Auto) 1.9 (1.0-4.0) 10^3/uL [place] # (Auto) 0.4 (0.1-0.8) 10^3/uL Eos # (Auto) 0.1 (0.1-0.3) 10^3/uL Baso # (Auto) 0.0 (0.0-0.1) 10^3/uL Sodium 141 (136-145) mmol/L Potassium 3.7 (3.3-5.3) mmol/L Chloride 104 (98-115) mmol/L Carbon Dioxide 28.7 (21.0-32.0) mmol/L BUN 11 (6-25) mg/dL Creatinine 0.78 (0.51-1.17) mg/dL Est Cr Clr Drug Dosing 160.28 mL/min Estimated GFR (MDRD) > 60 mL/min Glucose 95 (70-110) mg/dL Calcium 8.8 (8.7-10.3) mg/dL Total Bilirubin 0.7 (0.2-1.0) mg/dL AST 19 (15-37) U/L ALT 32 (12-78) U/L Alkaline Phosphatase 78 (46-116) IU/L Creatine Kinase 182 (26-276) U/L CK-MB (CK-2) 0.60 (0.00-4.30) ng/mL Troponin I < 0.04 (0.00-0.070) ng/mL Total Protein 7.3 (6.4-8.2) g/dL Albumin 3.94 (3.00-4.80) g/dL Urine Opiates Screen Negative (NEGATIVE) Ur Oxycodone Screen Negative (NEGATIVE) Urine Methadone Screen Negative (NEGATIVE) Ur Propoxyphene Screen Negative (NEGATIVE) Ur Barbiturates Screen Negative (NEGATIVE) Ur Tricyclics Screen Negative (NEGATIVE) Ur Phencyclidine Scrn Negative (NEGATIVE) Ur Amphetamine Screen Negative (NEGATIVE) U Methamphetamines Scrn Negative (NEGATIVE) U Benzodiazepines Scrn Negative (NEGATIVE) U Cocaine Metab Screen Negative (NEGATIVE) U Marijuana (THC) Screen Negative (NEGATIVE) Meds: Medications Discontinued Medications Generic Name Dose Route Start Last Admin Trade Name Freq PRN Reason Stop Dose Admin Sodium Chloride 1,000 mls @ 999 mls/hr 04/16/17 15:16 04/16/17 15:19 Normal Saline IV 04/16/17 16:16 999 mls/hr .BOLUS ONE Administration Lorazepam 1 mg 04/16/17 15:16 04/16/17 16:16 Ativan IVPUSH 04/16/17 15:17 Not Given ONETIME ONE Lorazepam 2 mg 04/16/17 15:18 04/16/17 15:16 Ativan IVPUSH 02/12/18 15:19 2 mg ONETIME ONE Administration - Radiology Interpretation Free Text/Narrative:: CXR- NAD CT head- NAD Departure - Departure Time of Disposition: 16:44 Disposition: Home, Self-Care 01 Condition: Good Clinical Impression: Pseudoseizure - Discharge Information Instructions: Nonepileptic Seizures, Electroencephalogram, Adult Referrals: Pasha Ford MD [Primary Care Provider] - Forms: ED Department Discharge - My Orders Last 24 Hours: My Active Orders 04/16/17 15:16 Chest 1V Frontal [CR] Stat Head wo Cont [CT] Stat EKG 12 Lead [EK] Routine 04/16/17 15:17 EKG Documentation Completion [RC] ASDIRECTED - Assessment/Plan Last 24 Hours: My Active Orders 04/16/17 15:16 Chest 1V Frontal [CR] Stat Head wo Cont [CT] Stat EKG 12 Lead [EK] Routine 04/16/17 15:17 EKG Documentation Completion [RC] ASDIRECTED Assessment:: 1. pseudo seizures Plan: 1. discussed case with Brody Singh who agreed with discharge and will see patient in clinic tomorrow for further evaluation and treatment 2. Pt instructed to return to ER for worsening symptoms
[2017-04-16 16:00] LABS: CHLORIDE,CL 104 mmol/L (98-115); SODIUM,NA 141 mmol/L (136-145)
== END 2017-04-16 17:00 | disposition home or self-care (01) ==
LOC: KA.ED 15:10
DX: R56.9 Unspecified convulsions (principal); Z87.891 Personal history of nicotine dependence
CPT/HCPCS: 36415; 70450; 71045; 80053; 80305; 82550; 82553; 84484; 85025; 93005; 96361; 96374; 99284; 99285; J2060; J7030

== ENCOUNTER 2017-05-01 16:00 | Emergency (ER) | payer MEDICAID ==
--- NOTE | 2017-05-01 16:53 | EDM.PDOC ---
ED HPI GENERAL MEDICAL PROBLEM - General Chief Complaint: General Stated Complaint: SYNCOPE Time Seen by Provider: 05/01/17 16:26 Source of Information: Reports: Patient, EMS Notes Reviewed, Significant Other ( Multiple emergency department visits) History Limitations: Reports: No Limitations - History of Present Illness INITIAL COMMENTS - FREE TEXT/NARRATIVE: Patient is a 26-year-old male who presents to the emergency department this afternoon via EMS. Per EMS, patient had a near syncopal/syncopal episode at work this afternoon. Patient stated he felt weak, developed a headache and decided to sit down on the floor and rest. Another employee thought he was having a seizure as he was staring into space. Patient has been seen in this emergency department on April 11, and April 16 for same symptoms. Patient was transferred to [facility] and had complete neurology workup with CT/EEG for suspected seizures. At that time results said to be negative, and patient was not placed on any seizure medicine. Patient has appointment for outpatient psychiatry next month. Patient admits to being worried because of a court date tomorrow. Same ER presentations occurred day prior to similar court action. Symptoms have been described as pseudo-seizures. Per EMS was afternoon, patient was having seizure-like activity, but shaking would spontaneously stop as patient answered question. Patient denies chest pain, shortness of breath, suicidal or homicidal ideation, vision changes, drug use, alcohol use, or fever. 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 [No Known Home Meds] 05/01/17 [History] Past Medical History - Past Health History Medical/Surgical History: Denies Medical/Surgical History Respiratory History: Reports: Asthma Other Respiratory History: supposed to be on an MDI Neurological History: Reports: Seizure Other Neuro History: Pt states he used to have seizures but was taken off meds approximately 5 yrs ago Psychiatric History: Reports: Other (See Below) Other Psychiatric History: mentally slow Endocrine/Metabolic History: Reports: Obesity/BMI 30+ - Infectious Disease History Infectious Disease History: Reports: Chicken Pox, Influenza, Shingles - Past Surgical History Endocrine Surgical History: Reports: None Social & Family History - Family History Family Medical History: Unobtainable - Tobacco Use Smoking Status *Q: Former Smoker Years of Tobacco use: 7 Packs/Tins Daily: 0.2 Used Tobacco, but Quit: Yes Month Tobacco Last Used: December Second Hand Smoke Exposure: Yes - Caffeine Use Caffeine Use: Reports: Coffee - Alcohol Use Days Per Week of Alcohol Use: 4 Number of Drinks Per Day: 0 Total Drinks Per Week: 0 - Recreational Drug Use Recreational Drug Use: No ED ROS GENERAL - Review of Systems Review Of Systems: ROS reveals no pertinent complaints other than HPI. Constitutional: Reports: No Symptoms HEENT: Reports: No Symptoms Respiratory: Reports: No Symptoms Cardiovascular: Reports: No Symptoms Endocrine: Reports: No Symptoms GI/Abdominal: Reports: No Symptoms : Reports: No Symptoms Musculoskeletal: Reports: No Symptoms Skin: Reports: No Symptoms Neurological: Reports: Headache, Syncope (Suspected) Psychiatric: Reports: No Symptoms Hematologic/Lymphatic: Reports: No Symptoms Immunologic: Reports: No Symptoms ED EXAM, GENERAL - Physical Exam Exam: See Below Exam Limited By: No Limitations General Appearance: Alert, WD/WN, No Apparent Distress Eye Exam: Bilateral Eye: Normal Inspection Ears: Normal External Exam, Normal Canal, Normal TMs Nose: Normal Inspection, Normal Mucosa, No Blood Throat/Mouth: Normal Inspection, Normal Oropharynx, No Airway Compromise Head: Atraumatic, Normocephalic Neck: Normal Inspection, Supple, Non-Tender, Full Range of Motion Respiratory/Chest: No Respiratory Distress, Lungs Clear, Normal Breath Sounds, No Accessory Muscle Use, Chest Non-Tender Cardiovascular: Regular Rate, Rhythm, No Murmur GI/Abdominal: Normal Bowel Sounds, Soft, Non-Tender Back Exam: Normal Inspection, Full Range of Motion. No: CVA Tenderness (L), CVA Tenderness (R) Extremities: Normal Inspection, Normal Range of Motion, Non-Tender, No Pedal Edema Neurological: Alert, Oriented, Slow to Respond Psychiatric: Flat Affect Skin Exam: Warm, Dry, Intact, Normal Color, No Rash Lymphatic: No Adenopathy Course - Vital Signs Last Recorded V/S: Last Vital Signs Temp 99.8 F 05/01/17 16:03 Pulse 84 05/01/17 16:03 Resp 16 05/01/17 16:03 BP 119/65 05/01/17 17:18 Pulse Ox 94 L 05/01/17 17:18 - Orders/Labs/Meds Labs: Laboratory Tests 05/01/17 05/01/17 05/01/17 Range/Units 16:30 16:45 16:45 WBC 5.7 (5.0-10.0) 10^3/uL RBC 5.13 (4.50-6.00) 10^6/uL Hgb 14.2 (13.0-17.0) g/dL Hct 42.7 (40.0-52.0) % MCV 83.3 (82.0-92.0) fL MCH 27.8 (27.0-31.0) pg MCHC 33.3 (32.0-36.0) g/dL RDW 12.4 (11.5-14.5) % Plt Count 269 (150-300) 10^3/uL MPV 7.0 L (7.4-10.4) fL Neut % (Auto) 52.5 (50.0-70.0) % Lymph % (Auto) 38.4 (20.0-40.0) % [place] % (Auto) 6.6 (2.0-8.0) % Eos % (Auto) 2.0 (1.0-3.0) % Baso % (Auto) 0.5 (0.0-1.0) % Neut # (Auto) 3.0 (2.5-7.0) 10^3/uL Lymph # (Auto) 2.2 (1.0-4.0) 10^3/uL [place] # (Auto) 0.4 (0.1-0.8) 10^3/uL Eos # (Auto) 0.1 (0.1-0.3) 10^3/uL Baso # (Auto) 0.0 (0.0-0.1) 10^3/uL Sodium 138 (136-145) mmol/L Potassium 3.6 (3.3-5.3) mmol/L Chloride 101 (98-115) mmol/L Carbon Dioxide 28.5 (21.0-32.0) mmol/L BUN 10 (6-25) mg/dL Creatinine 0.79 (0.51-1.17) mg/dL Est Cr Clr Drug Dosing 153.57 mL/min Estimated GFR (MDRD) > 60 mL/min Glucose 92 (70-110) mg/dL Calcium 9.2 (8.7-10.3) mg/dL Total Bilirubin 0.4 (0.2-1.0) mg/dL AST 20 (15-37) U/L ALT 30 (12-78) U/L Alkaline Phosphatase 78 (46-116) IU/L Total Protein 7.3 (6.4-8.2) g/dL Albumin 4.14 (3.00-4.80) g/dL Urine Opiates Screen Negative (NEGATIVE) Ur Oxycodone Screen Negative (NEGATIVE) Urine Methadone Screen Negative (NEGATIVE) Ur Propoxyphene Screen Negative (NEGATIVE) Ur Barbiturates Screen Negative (NEGATIVE) Ur Tricyclics Screen Negative (NEGATIVE) Ur Phencyclidine Scrn Negative (NEGATIVE) Ur Amphetamine Screen Negative (NEGATIVE) U Methamphetamines Scrn Negative (NEGATIVE) U Benzodiazepines Scrn Negative (NEGATIVE) U Cocaine Metab Screen Negative (NEGATIVE) U Marijuana (THC) Screen Negative (NEGATIVE) - Re-Assessments/Exams Free Text/Narrative Re-Assessment/Exam: 05/01/17 17:20 Patient afebrile, nontoxic appearing, vital signs stable. Patient resting comfortably in bed. Patient will be picked up by a friend. Patient will follow -up with PCP in one to 2 days. Departure - Departure Time of Disposition: 17:20 Disposition: Home, Self-Care 01 Condition: Good Clinical Impression: Psychiatric pseudoseizure, Pseudoseizure - Discharge Information Instructions: Non-Epileptic Seizures, Adult Referrals: PCP,None [Primary Care Provider] - Mercedes Conteh PA-C [Physician] - Forms: ED Department Discharge Additional Instructions: Follow-up at [facility] in 1-2 days. Return to emergency department sooner if symptoms continue or worsen. - Assessment/Plan Assessment:: Pseudoseizures Plan: Follow-up with PCP in one to 2 days
[2017-05-01 17:07] LABS: CHLORIDE,CL 101 mmol/L (98-115); SODIUM,NA 138 mmol/L (136-145)
[2017-05-01 17:19] VITALS: BP 119/65
== END 2017-05-01 17:30 | disposition home or self-care (01) ==
LOC: KA.ED 16:00
DX: R29.818 Other symptoms and signs involving the nervous system (principal); Z87.891 Personal history of nicotine dependence
CPT/HCPCS: 36415; 80053; 80305; 85025; 99283; 99284

== ENCOUNTER 2017-08-09 17:50 | Emergency (ER) | payer MEDICAID ==
[2017-08-09] MEDS: Sodium Chloride 0.9% 1,000 ML IV ONE (18:33)
--- NOTE | 2017-08-09 18:36 | EDM.PDOC ---
ED HPI GENERAL MEDICAL PROBLEM - General Chief Complaint: General Stated Complaint: SYNCOPE Time Seen by Provider: 08/09/17 18:31 Source of Information: Reports: Patient, EMS, EMS Notes Reviewed History Limitations: Reports: No Limitations - History of Present Illness INITIAL COMMENTS - FREE TEXT/NARRATIVE: Patient is a 26-year-old gentleman who presents to the emergency department this evening via EMS with a complaint of a near syncopal episode. Patient states that he was at work in the office felt weak and faint, and had to sit down. Co-workers called 911. Per EMS, patient was alert and awake, vital signs stable, with no signs or symptoms of seizure or trauma. He has strong history of same symptoms and presentation and has been in the hospital emergency department 4 times in the last few months. Upon presentation to the emergency department patient appears in no distress, requesting food because he is hungry , and acting appropriate. Patient has history of developmental delay issues. At this time patient denies chest pain, shortness of breath, headache, nausea, vomiting, or vision changes. Onset: Today Onset Date: 08/09/17 Onset Time: 17:30 Location: Reports: Head, Abdomen Quality: Reports: Other (Not well characterized) Improves with: Reports: Other (Spontaneously) Worsens with: Reports: None Associated Symptoms: Reports: Headaches (Of chronic nature) Epigastric Pain Score (Numeric/FACES): 10 - Related Data Allergies Allergy/AdvReac Type Severity Reaction Status Date / Time No Known Allergies Allergy Verified 08/09/17 18:06 Home Meds: Home Meds . [No Known Home Meds] 05/01/17 [History] Past Medical History - Past Health History Medical/Surgical History: Denies Medical/Surgical History HEENT History: Reports: Impaired Vision Respiratory History: Reports: Asthma Other Respiratory History: supposed to be on an MDI Neurological History: Reports: Seizure Other Neuro History: Pt states he used to have seizures but was taken off meds approximately 5 yrs ago Psychiatric History: Reports: Other (See Below) Other Psychiatric History: mentally slow Endocrine/Metabolic History: Reports: Obesity/BMI 30+ - Infectious Disease History Infectious Disease History: Reports: Chicken Pox, Influenza, Shingles - Past Surgical History Endocrine Surgical History: Reports: None Social & Family History - Family History Family Medical History: Unobtainable - Tobacco Use Smoking Status *Q: Current Some Day Smoker Years of Tobacco use: 2 Packs/Tins Daily: 0.5 Second Hand Smoke Exposure: No - Caffeine Use Caffeine Use: Reports: Coffee, Energy Drinks, Soda, Tea - Alcohol Use Days Per Week of Alcohol Use: 7 Number of Drinks Per Day: 1 Total Drinks Per Week: 7 - Recreational Drug Use Recreational Drug Use: No ED ROS GENERAL - Review of Systems Review Of Systems: ROS reveals no pertinent complaints other than HPI. Constitutional: Reports: Weakness HEENT: Reports: No Symptoms Respiratory: Reports: No Symptoms Cardiovascular: Reports: No Symptoms Endocrine: Reports: No Symptoms GI/Abdominal: Reports: Abdominal Pain (Epigastric) : Reports: No Symptoms Musculoskeletal: Reports: No Symptoms Skin: Reports: No Symptoms Neurological: Reports: Pre-Existing Deficit (Mental delay) Psychiatric: Reports: No Symptoms Hematologic/Lymphatic: Reports: No Symptoms Immunologic: Reports: No Symptoms ED EXAM, GENERAL - Physical Exam Exam: See Below Exam Limited By: No Limitations General Appearance: Alert, WD/WN, No Apparent Distress Eye Exam: Bilateral Eye: Normal Inspection Nose: Normal Inspection, No Blood Throat/Mouth: Normal Inspection, Normal Oropharynx, No Airway Compromise Head: Atraumatic, Normocephalic Neck: Normal Inspection, Supple Respiratory/Chest: No Respiratory Distress, Lungs Clear Cardiovascular: Regular Rate, Rhythm, No Murmur GI/Abdominal: Normal Bowel Sounds, Soft, Non-Tender, No Organomegaly, No Distention, No Abnormal Bruit, No Mass Back Exam: Normal Inspection, Full Range of Motion. No: CVA Tenderness (L), CVA Tenderness (R) Extremities: Normal Inspection, No Pedal Edema Neurological: Alert, Oriented, Normal Cognition Psychiatric: Normal Affect, Normal Mood Skin Exam: Warm, Dry, Intact, Normal Color, No Rash Course - Vital Signs Last Recorded V/S: Last Vital Signs Temp 98.9 F 08/09/17 17:56 Pulse 80 08/09/17 18:09 Resp 17 08/09/17 18:09 BP 132/60 08/09/17 18:09 Pulse Ox 96 08/09/17 18:09 - Orders/Labs/Meds Orders: Active Orders 24 hr Category Date Time Status CBC WITH AUTO DIFF [HEME] Stat Lab 08/09/17 18:16 Ordered COMPREHENSIVE METABOLIC PN,CMP [CHEM] Stat Lab 08/09/17 18:16 Ordered LIPASE [CHEM] Stat Lab 08/09/17 18:16 Ordered Sodium Chloride 0.9% [Normal Saline] 1,000 ml Med 08/09/17 18:16 Active IV .BOLUS Medication Orders Sodium Chloride (Normal Saline) 1,000 mls @ 999 mls/hr IV .BOLUS ONE Stop: 08/09/17 19:16 Meds: Medications Generic Name Dose Route Start Last Admin Trade Name Freq PRN Reason Stop Dose Admin Sodium Chloride 1,000 mls @ 999 mls/hr 08/09/17 18:16 Normal Saline IV 08/09/17 19:16 .BOLUS ONE - Re-Assessments/Exams Free Text/Narrative Re-Assessment/Exam: 08/09/17 18:56 Patient afebrile, nontoxic appearing, vital signs stable, no discomfort at this time. Patient's hungry and requesting food. Patient's mother will transport patient home. Patient will follow-up with PCP in next 1-2 days. Departure - Departure Time of Disposition: 18:58 Disposition: Home, Self-Care 01 Condition: Good Clinical Impression: Pseudoseizure - Discharge Information Instructions: Non-Epileptic Seizures, Adult Referrals: Brody Singh, [employer] [Nurse Practitioner] - Additional Instructions: Follow-up at [facility] tomorrow. Return to emergency sooner if symptoms continue or worsen. - My Orders Last 24 Hours: My Active Orders 08/09/17 18:16 CBC WITH AUTO DIFF [HEME] Stat COMPREHENSIVE METABOLIC PN,CMP [CHEM] Stat LIPASE [CHEM] Stat Sodium Chloride 0.9% [Normal Saline] 1,000 ml IV .BOLUS - Assessment/Plan Last 24 Hours: My Active Orders 08/09/17 18:16 CBC WITH AUTO DIFF [HEME] Stat COMPREHENSIVE METABOLIC PN,CMP [CHEM] Stat LIPASE [CHEM] Stat Sodium Chloride 0.9% [Normal Saline] 1,000 ml IV .BOLUS Assessment:: Pseudoseizures Plan: Follow-up with PCP
[2017-08-09 18:46] LABS: CHLORIDE,CL 103 mmol/L (98-115); SODIUM,NA 141 mmol/L (136-145)
[2017-08-09 18:49] VITALS: BP 113/63
== END 2017-08-09 19:05 | disposition home or self-care (01) ==
LOC: KA.ED 17:50
DX: R56.9 Unspecified convulsions (principal); F17.210 Nicotine dependence, cigarettes, uncomplicated
CPT/HCPCS: 80053; 83690; 85025; 96360; 99284; J7030

== ENCOUNTER 2017-09-14 16:17 | Emergency (ER) | payer MEDICAID ==
--- NOTE | 2017-09-14 16:39 | EDM.PDOC ---
ED HPI GENERAL MEDICAL PROBLEM - General Chief Complaint: Syncope Stated Complaint: SEIZURE Time Seen by Provider: 09/14/17 16:20 Source of Information: Reports: Patient, EMS History Limitations: Reports: No Limitations - History of Present Illness INITIAL COMMENTS - FREE TEXT/NARRATIVE: 26 YO WM presents to ER after having a witnessed seizure while at work today. Pt was witnessed sliding down wall and sitting on the ground. EMS arrived and pt was alert and oriented x 4. Pt denies any injury or headache or head trauma. Pt was recently seen in [facility] 04/11/2017 after evaluation of seizures. Pt has been to ER multiple times with similar episodes over the last 6 month. According to [facility] records pt had an EEG, neurology evaluation and psych evaluation and it was determined that these seizures are most likely related to pseudoseizures. Pt has had outpatient psychiatry visits. Pt is currently alert and oriented x 4. Denies fever/chills, nausea/vomiting, headache, chest pain or shortness of breath. Pt denies any suicidal or homicidal ideation and without visual or auditory hallucinations. Onset: Today Onset Date: 09/14/17 Onset Time: 16:00 Location: Reports: Generalized Improves with: Reports: None Worsens with: Reports: None Associated Symptoms: Reports: No Other Symptoms, Seizure. Denies: Confusion, Fever/Chills, Headaches, Shortness of Breath, Syncope, Weakness - Related Data Allergies Allergy/AdvReac Type Severity Reaction Status Date / Time No Known Allergies Allergy Verified 09/14/17 16:37 Home Meds: Home Meds . [No Known Home Meds] 05/01/17 [History] Past Medical History - Past Health History Medical/Surgical History: Denies Medical/Surgical History HEENT History: Reports: Impaired Vision Respiratory History: Reports: Asthma Other Respiratory History: supposed to be on an MDI Neurological History: Reports: Seizure Other Neuro History: Pt states he used to have seizures but was taken off meds approximately 5 yrs ago Psychiatric History: Reports: Other (See Below) Other Psychiatric History: mentally slow Endocrine/Metabolic History: Reports: Obesity/BMI 30+ - Infectious Disease History Infectious Disease History: Reports: Chicken Pox, Influenza, Shingles - Past Surgical History Endocrine Surgical History: Reports: None Social & Family History - Family History Family Medical History: Unobtainable - Caffeine Use Caffeine Use: Reports: Coffee, Energy Drinks, Soda, Tea ED ROS GENERAL - Review of Systems Review Of Systems: See Below Constitutional: Reports: No Symptoms HEENT: Reports: No Symptoms Respiratory: Reports: No Symptoms Cardiovascular: Reports: No Symptoms Endocrine: Reports: No Symptoms GI/Abdominal: Reports: No Symptoms : Reports: No Symptoms Musculoskeletal: Reports: No Symptoms Skin: Reports: No Symptoms Neurological: Reports: No Symptoms, Seizure. Denies: Confusion, Dizziness, Headache, Syncope, Difficulty Walking Psychiatric: Reports: No Symptoms Hematologic/Lymphatic: Reports: No Symptoms Immunologic: Reports: No Symptoms - Physical Exam Exam: See Below Exam Limited By: No Limitations General Appearance: Alert, WD/WN, No Apparent Distress Eye Exam: Bilateral Eye: EOMI, PERRL Throat/Mouth: Normal Inspection, Normal Lips, Normal Teeth, Normal Gums, Normal Oropharynx, Normal Voice, No Airway Compromise Head Exam: Atraumatic, Normocephalic Neck: Normal Inspection, Supple, Non-Tender, Full Range of Motion Respiratory/Chest: No Respiratory Distress, Lungs Clear, Normal Breath Sounds, No Accessory Muscle Use, Chest Non-Tender Cardiovascular: Normal Peripheral Pulses, Regular Rate, Rhythm, No Edema, No Gallop, No JVD, No Murmur, No Rub GI/Abdominal: Normal Bowel Sounds, Soft, Non-Tender, No Organomegaly, No Distention, No Abnormal Bruit, No Mass Neuro Exam (Abbreviated): Alert, Oriented, CN II-XII Intact, Normal Cognition, Normal Gait, Normal Reflexes, No Motor/Sensory Deficits Back Exam: Normal Inspection, Full Range of Motion, NT Extremities: Normal Inspection, Normal Range of Motion, Non-Tender, No Pedal Edema, Normal Capillary Refill Psychiatric: Normal Affect, Normal Mood Skin Exam: Warm, Dry, Intact, Normal Color, No Rash Course - Orders/Labs/Meds Meds: Medications Discontinued Medications Generic Name Dose Route Start Last Admin Trade Name Freq PRN Reason Stop Dose Admin Lorazepam 1 mg 09/14/17 16:40 Ativan IM 09/14/17 16:41 ONETIME ONE - Re-Assessments/Exams Free Text/Narrative Re-Assessment/Exam: 09/14/17 16:50 no evidence of syncope or active seizures by EMS or while in ER. Pt was suppose to follow up with outpatient psych but hasn't. Pt was instructed to follow up for further evaluation and treatment Departure - Departure Time of Disposition: 16:51 Disposition: Home, Self-Care 01 Condition: Good Clinical Impression: Pseudoseizure - Discharge Information Instructions: Conversion Disorder, Non-Epileptic Seizures, Adult Referrals: PCP,None [Primary Care Provider] - Pasha Ford MD [Physician] - Forms: ED Department Discharge - Assessment/Plan Assessment:: 1. seizure vs pseudoseizure Plan: 1. discharge home 2. follow up with neurology as needed and psych as outpatient 3. follow up with PCP for further evaluation and treatment 4. return to ER for worsening symptoms
[2017-09-14] MEDS: LORazepam 2 MG/ML SDV IM ONE (16:56)
[2017-09-14 17:23] VITALS: BP 142/58
== END 2017-09-14 17:10 | disposition home or self-care (01) ==
LOC: KA.ED 16:17
DX: R56.9 Unspecified convulsions (principal); E66.9 Obesity, unspecified
CPT/HCPCS: 96372; 99283; J2060

== ENCOUNTER 2019-04-08 17:48 | Emergency (ER) | payer MEDICAID, OTHER ==
[2019-04-08 18:09] VITALS: BP 136/85
[2019-04-08] MEDS ORDERED: Dexamethasone 4 MG/ML SDV IM ONE (18:39)
[2019-04-08] MEDS ORDERED: Albuterol/Ipratropium 3.0-0.5 MG/3 ML Neb Soln NEB ONE (18:39)
--- NOTE | 2019-04-08 18:49 | EDM.PDOC ---
ED HPI GENERAL MEDICAL PROBLEM - General Chief Complaint: General Stated Complaint: BAD COUGH Time Seen by Provider: 04/08/19 18:37 Source of Information: Reports: Patient History Limitations: Reports: No Limitations - History of Present Illness INITIAL COMMENTS - FREE TEXT/NARRATIVE: Patient is a 28-year-old gentleman who presents to the emergency department this evening via private vehicle for a complaint of chronic cough. Patient states he was seen at the [facility] 2 times last week. Patient was treated for asthma and given prescription for MDI and Medrol Dosepak. Patient did not fill prescriptions due to cost. Cough has been persistent and nonproductive. Described as a tickle in his lungs. Patient denies chest pain, fever, out of country travel, or working around chemicals or dust particles. Onset: Gradual, Unknown/Unsure Duration: Week(s):, Constant Severity: Mild Improves with: Reports: None Worsens with: Reports: Breathing Associated Symptoms: Reports: Cough. Denies: Diaphoresis, Fever/Chills Left Lower Thoracic Pain Score (Numeric/FACES): 10 - Related Data Allergies Allergy/AdvReac Type Severity Reaction Status Date / Time No Known Allergies Allergy Verified 04/08/19 18:09 Home Meds: Home Meds Albuterol [Proventil HFA] 2 puff INH Q4H #1 inhaler 04/08/19 [Rx] Amitriptyline [Elavil] 10 mg PO BEDTIME 04/08/19 [History] Benzonatate 200 mg PO TID PRN 04/08/19 [History] Ondansetron [Zofran] 4 mg PO TID PRN 04/08/19 [History] SUMAtriptan [Imitrex] 25 mg PO DAILY PRN 04/08/19 [History] methylPREDNISolone [Methylprednisolone] 4 mg PO DAILY 04/08/19 [History] predniSONE 40 mg PO WITHBREAKFAST #5 tab 04/08/19 [Rx] Past Medical History - Past Health History Medical/Surgical History: Denies Medical/Surgical History HEENT History: Reports: Impaired Vision Respiratory History: Reports: Asthma Other Respiratory History: supposed to be on an MDI Neurological History: Reports: Seizure Other Neuro History: Pt states he used to have seizures but was taken off meds approximately 5 yrs ago Psychiatric History: Reports: Other (See Below) Other Psychiatric History: mentally slow Endocrine/Metabolic History: Reports: Obesity/BMI 30+ - Infectious Disease History Infectious Disease History: Reports: Chicken Pox, Influenza, Shingles - Past Surgical History Endocrine Surgical History: Reports: None Social & Family History - Family History Family Medical History: Unobtainable - Tobacco Use Smoking Status *Q: Former Smoker Used Tobacco, but Quit: Yes Month/Year Tobacco Last Used: quit couple years ago Second Hand Smoke Exposure: No - Caffeine Use Caffeine Use: Reports: Coffee, Energy Drinks, Soda, Tea - Recreational Drug Use Recreational Drug Use: No ED ROS GENERAL - Review of Systems Review Of Systems: Comprehensive ROS is negative, except as noted in HPI. Constitutional: Reports: No Symptoms HEENT: Reports: No Symptoms Respiratory: Reports: Wheezing, Cough Cardiovascular: Reports: No Symptoms Endocrine: Reports: No Symptoms GI/Abdominal: Reports: No Symptoms : Reports: No Symptoms Musculoskeletal: Reports: No Symptoms Skin: Reports: No Symptoms Neurological: Reports: No Symptoms Psychiatric: Reports: No Symptoms Hematologic/Lymphatic: Reports: No Symptoms Immunologic: Reports: No Symptoms ED EXAM, GENERAL - Physical Exam Exam: See Below Exam Limited By: No Limitations General Appearance: Alert, WD/WN, No Apparent Distress Eye Exam: Bilateral Eye: Normal Inspection Ears: Normal External Exam, Normal Canal, Normal TMs Nose: Normal Inspection, Normal Mucosa, No Blood Throat/Mouth: Normal Inspection, Normal Lips, Normal Oropharynx, Normal Voice, No Airway Compromise Head: Atraumatic, Normocephalic Neck: Normal Inspection, Supple, Non-Tender. No: Lymphadenopathy (L), Lymphadenopathy (R) Respiratory/Chest: No Respiratory Distress, Wheezing (Faint end expiratory wheeze) Cardiovascular: Regular Rate, Rhythm, No Murmur GI/Abdominal: Normal Bowel Sounds, Soft, Non-Tender Back Exam: Normal Inspection. No: CVA Tenderness (L), CVA Tenderness (R) Extremities: Normal Inspection, No Pedal Edema Neurological: Alert, Oriented, Normal Cognition Psychiatric: Normal Affect, Normal Mood Skin Exam: Warm, Dry, Intact, Normal Color, No Rash Lymphatic: No Adenopathy Course - Vital Signs Last Recorded V/S: Last Vital Signs Temp 98.7 F 04/08/19 18:02 Pulse 102 H 04/08/19 18:02 Resp 20 04/08/19 18:02 BP 136/85 04/08/19 18:02 Pulse Ox 95 04/08/19 18:02 - Orders/Labs/Meds Orders: Active Orders 24 hr Category Date Time Status RT Aerosol Therapy [RC] ASDIRECTED Care 04/08/19 18:39 Ordered Chest 2V [CR] Stat Exams 04/08/19 18:25 Ordered INFLUENZA A+B AG SCREEN [RM] Stat Lab 04/08/19 18:29 Ordered Albuterol/Ipratropium [DuoNeb 3.0-0.5 MG/3 ML] Med 04/08/19 18:39 Once 3 ml NEB ONETIME ONE dexAMETHasone [Dexamethasone] Med 04/08/19 18:39 Once 8 mg IM ONETIME ONE - Radiology Interpretation Free Text/Narrative:: Chest x-ray shows no acute cardiopulmonary process Departure - Departure Time of Disposition: 19:00 Disposition: Home, Self-Care 01 Condition: Good Clinical Impression: Asthma - Discharge Information Instructions: Bronchospasm, Adult, [id number], How to Use a Metered Dose Inhaler Referrals: Brody Singh, C [employer] [Primary Care Provider] - Additional Instructions: Follow-up at [facility] in 2 days. Return to emergency sooner symptoms continue or worsen. Take medication as directed Sepsis Event Note - Evaluation Sepsis Screening Result: No Definite Risk - Focused Exam Vital Signs: Vital Signs Temp Pulse Resp BP Pulse Ox 04/08/19 18:02 98.7 F 102 H 20 136/85 95 Date Exam was Performed: 04/08/19 Time Exam was Performed: 18:40 - My Orders Last 24 Hours: My Active Orders 04/08/19 18:25 Chest 2V [CR] Stat 04/08/19 18:29 INFLUENZA A+B AG SCREEN [RM] Stat 04/08/19 18:39 RT Aerosol Therapy [RC] ASDIRECTED Albuterol/Ipratropium [DuoNeb 3.0-0.5 MG/3 ML] 3 ml NEB ONETIME ONE dexAMETHasone [Dexamethasone] 8 mg IM ONETIME ONE - Assessment/Plan Last 24 Hours: My Active Orders 04/08/19 18:25 Chest 2V [CR] Stat 04/08/19 18:29 INFLUENZA A+B AG SCREEN [RM] Stat 04/08/19 18:39 RT Aerosol Therapy [RC] ASDIRECTED Albuterol/Ipratropium [DuoNeb 3.0-0.5 MG/3 ML] 3 ml NEB ONETIME ONE dexAMETHasone [Dexamethasone] 8 mg IM ONETIME ONE Assessment:: Asthma Plan: Follow-up at [facility]
--- NOTE | 2019-04-08 18:51 | CR ---
[id number] RAD/RAD Chest PA And Lateral EXAM: FRONTAL AND LATERAL CHEST INDICATION: COUGH. COMPARISON: April 16, 2017. DISCUSSION: Mild chronic prominence of the left main pulmonary artery. No acute infiltrates. Normal heart size. IMPRESSION: 1. No acute findings. Preston Gandara MD 04/08/19 0429 Thank you for allowing us to participate in the care of your patient.
[2019-04-08 19:00] VITALS: PULSE 90
[2019-04-08] MEDS ORDERED: Albuterol 8 GM Inhaler INH ONE (19:07)
== END 2019-04-08 19:20 | disposition home or self-care (01) ==
LOC: KA.ED 17:48
DX: J45.909 Unspecified asthma, uncomplicated (principal); Z79.899 Other long term (current) drug therapy; Z87.891 Personal history of nicotine dependence
CPT/HCPCS: 71046; 87804; 94640; 96372; 99284-25; A9270-GY; J1100; J7620-GY

== ENCOUNTER 2019-07-04 14:32 | Emergency (ER) | payer OTHER ==
[2019-07-04] MEDS ORDERED: Metoclopramide 10 MG/2 ML SDV IVPUSH ONE (14:46)
[2019-07-04] MEDS ORDERED: Ketorolac 30 MG/ML SDV IVPUSH ONE (14:46)
[2019-07-04] MEDS ORDERED: Sodium Chloride 0.9% 1,000 ML IV ONE (14:46)
[2019-07-04] MEDS ORDERED: diphenhydrAMINE 50 MG/ML SDV IVPUSH ONE (14:46)
--- NOTE | 2019-07-04 14:50 | EDM.PDOC ---
ED HPI GENERAL MEDICAL PROBLEM - General Chief Complaint: Headache Stated Complaint: headache Time Seen by Provider: 07/04/19 14:40 Source of Information: Reports: Patient History Limitations: Reports: No Limitations - History of Present Illness INITIAL COMMENTS - FREE TEXT/NARRATIVE: 28 YO WM presents to ER complaining of frontal headache which started this am. Pt with PMH of chronic headache and he states this headache is similar in character and severity but he had an episode of vomiting with it today prompting concern and ER evaluation. Pt denies fever/chills, no neck pain, no URI symptoms- no cough, congestion or shortness of breath. Pt reports he was able to drink some fluids and eat a snack without vomiting earlier today. Onset: Today Location: Reports: Head Quality: Reports: Ache Severity: Moderate Improves with: Reports: None Worsens with: Reports: None Associated Symptoms: Reports: No Other Symptoms, Headaches, Nausea/Vomiting. Denies: Chest Pain, Cough, Seizure, Shortness of Breath, Syncope, Weakness Head Pain Score (Numeric/FACES): 4 - Related Data Allergies Allergy/AdvReac Type Severity Reaction Status Date / Time No Known Allergies Allergy Verified 07/04/19 14:40 Home Meds: Home Meds Albuterol [Proventil HFA] 2 puff INH Q4H #1 inhaler 04/08/19 [Rx] Amitriptyline [Elavil] 10 mg PO BEDTIME 04/08/19 [History] Benzonatate 200 mg PO TID PRN 04/08/19 [History] Ondansetron [Zofran] 4 mg PO TID PRN 04/08/19 [History] SUMAtriptan [Imitrex] 25 mg PO DAILY PRN 04/08/19 [History] methylPREDNISolone [Methylprednisolone] 4 mg PO DAILY 04/08/19 [History] predniSONE 40 mg PO WITHBREAKFAST #5 tab 04/08/19 [Rx] Past Medical History - Past Health History Medical/Surgical History: Denies Medical/Surgical History HEENT History: Reports: Impaired Vision Respiratory History: Reports: Asthma Other Respiratory History: supposed to be on an MDI Neurological History: Reports: Seizure Other Neuro History: Pt states he used to have seizures but was taken off meds approximately 5 yrs ago Psychiatric History: Reports: Other (See Below) Other Psychiatric History: mentally slow Endocrine/Metabolic History: Reports: Obesity/BMI 30+ - Infectious Disease History Infectious Disease History: Reports: Chicken Pox, Influenza, Shingles - Past Surgical History Endocrine Surgical History: Reports: None Social & Family History - Family History Family Medical History: Unobtainable - Caffeine Use Caffeine Use: Reports: Coffee, Energy Drinks, Soda, Tea ED ROS GENERAL - Review of Systems Review Of Systems: See Below Constitutional: Denies: Fever, Chills HEENT: Reports: No Symptoms Respiratory: Reports: No Symptoms Cardiovascular: Reports: No Symptoms Endocrine: Reports: No Symptoms GI/Abdominal: Reports: No Symptoms : Reports: No Symptoms Musculoskeletal: Reports: No Symptoms Skin: Reports: No Symptoms Neurological: Reports: Headache. Denies: Confusion, Dizziness, Numbness, Paresthesia, Trouble Speaking, Weakness, Change in Speech, Gait Disturbance Psychiatric: Reports: No Symptoms Hematologic/Lymphatic: Reports: No Symptoms Immunologic: Reports: No Symptoms - Physical Exam Exam: See Below Exam Limited By: No Limitations General Appearance: Alert, WD/WN, No Apparent Distress Eye Exam: Bilateral Eye: PERRL Ears: Normal External Exam, Normal Canal, Hearing Grossly Normal, Normal TMs Nose: Normal Inspection, Normal Mucosa, No Blood Throat/Mouth: Normal Inspection, Normal Lips, Normal Teeth, Normal Gums, Normal Oropharynx, Normal Voice, No Airway Compromise Head Exam: Atraumatic, Normocephalic Neck: Normal Inspection, Supple, Non-Tender, Full Range of Motion Respiratory/Chest: No Respiratory Distress, Lungs Clear, Normal Breath Sounds, No Accessory Muscle Use, Chest Non-Tender Cardiovascular: Normal Peripheral Pulses, Regular Rate, Rhythm, No Edema, No Gallop, No JVD, No Murmur, No Rub GI/Abdominal: Normal Bowel Sounds, Soft, Non-Tender, No Organomegaly, No Distention, No Abnormal Bruit, No Mass Neuro Exam (Abbreviated): Alert, Oriented, CN II-XII Intact, Normal Cognition, Normal Gait, Normal Reflexes, No Motor/Sensory Deficits Back Exam: Normal Inspection, Full Range of Motion, NT Extremities: Normal Inspection, Normal Range of Motion, Non-Tender, No Pedal Edema, Normal Capillary Refill Psychiatric: Normal Affect, Normal Mood Skin Exam: Warm, Dry, Intact, Normal Color, No Rash Course - Vital Signs Last Recorded V/S: Last Vital Signs Temp 36.4 C 07/04/19 14:42 Pulse 92 07/04/19 14:42 Resp 14 07/04/19 14:42 BP 139/84 07/04/19 14:42 Pulse Ox 95 07/04/19 14:42 - Orders/Labs/Meds Meds: Medications Discontinued Medications Generic Name Dose Route Start Last Admin Trade Name Roderick PRN Reason Stop Dose Admin Diphenhydramine HCl 50 mg 07/04/19 14:46 Benadryl IVPUSH 07/04/19 14:47 ONETIME ONE Sodium Chloride 1,000 mls @ 999 mls/hr 07/04/19 14:46 07/04/19 15:34 Normal Saline IV 07/04/19 15:46 999 mls/hr .BOLUS ONE Administration Ketorolac Tromethamine 30 mg 07/04/19 14:46 07/04/19 15:34 Toradol IVPUSH 07/04/19 14:47 30 mg ONETIME ONE Administration Metoclopramide HCl 10 mg 07/04/19 14:46 Reglan IVPUSH 07/04/19 14:47 ONETIME ONE - Re-Assessments/Exams Free Text/Narrative Re-Assessment/Exam: 07/04/19 15:55 pain improved after fluids and medications. Pt wants to go home. Pt is alert and oriented x 4 and painfree without nausea Departure - Departure Time of Disposition: 15:56 Disposition: Home, Self-Care 01 Condition: Good Clinical Impression: Cluster headache syndrome, Headache, chronic daily - Discharge Information Instructions: General Headache Without Cause Referrals: Pasha Ford MD [Physician] - Forms: ED Department Discharge Additional Instructions: 1. discharge home 2. plenty of fluids 3. use Imitrex if headache returns 4. if no improvement return to ER for further evaluation and treatment 5. follow up with PCP as needed Sepsis Event Note - Evaluation Sepsis Screening Result: No Definite Risk - Focused Exam Vital Signs: Vital Signs Temp Pulse Resp BP Pulse Ox 07/04/19 14:42 36.4 C 92 14 139/84 95 Date Exam was Performed: 07/04/19 Time Exam was Performed: 15:55 - Assessment/Plan Assessment:: 1. Frontal Headache 2. Chronic headaches Plan: 1. discharge home 2. plenty of fluids 3. use Imitrex if headache returns 4. if no improvement return to ER for further evaluation and treatment 5. follow up with PCP as needed
[2019-07-04 16:34] VITALS: BP 146/95; PULSE 100
== END 2019-07-04 16:10 | disposition home or self-care (01) ==
LOC: KA.ED 14:32
DX: G44.009 Cluster headache syndrome, unspecified, not intractable (principal); J45.909 Unspecified asthma, uncomplicated; Z79.899 Other long term (current) drug therapy
CPT/HCPCS: 96374; 96375; 99283; 99284-25; J1200; J1885; J2765; J7030

== ENCOUNTER 2020-03-10 22:40 | Emergency (ER) | payer SELFPAY ==
[2020-03-10 23:24] VITALS: BP 124/82; PULSE 94
--- NOTE | 2020-03-10 23:47 | EDM.PDOC ---
ED HPI GENERAL MEDICAL PROBLEM - General Chief Complaint: General Stated Complaint: fall off ladder Time Seen by Provider: 03/10/20 23:28 Source of Information: Reports: Patient History Limitations: Reports: No Limitations - History of Present Illness INITIAL COMMENTS - FREE TEXT/NARRATIVE: Patient presents with left rib pain after falling today at noon. He says he was up on a ladder doing some stapling. He thinks he fell about 10 feet and landed with his left lateral chest on the ladder rail. He hasn't had any shortness of breath or difficulty breathing but does have rib pain. He denies injury to head or neck and has no pain there. Left Chest Pain Score (Numeric/FACES): 10 - Related Data Allergies Allergy/AdvReac Type Severity Reaction Status Date / Time No Known Allergies Allergy Verified 03/10/20 23:41 Home Meds: Home Meds Albuterol [Proventil HFA] 2 puff INH Q4H #1 inhaler 04/08/19 [Rx] Past Medical History - Past Health History Medical/Surgical History: Denies Medical/Surgical History HEENT History: Reports: Impaired Vision Respiratory History: Reports: Asthma Other Respiratory History: supposed to be on an MDI Neurological History: Reports: Seizure Other Neuro History: Pt states he used to have seizures but was taken off meds approximately 5 yrs ago Psychiatric History: Reports: Other (See Below) Other Psychiatric History: mentally slow Endocrine/Metabolic History: Reports: Obesity/BMI 30+ - Infectious Disease History Infectious Disease History: Reports: Chicken Pox, Influenza, Shingles - Past Surgical History Endocrine Surgical History: Reports: None Social & Family History - Family History Family Medical History: Unobtainable - Caffeine Use Caffeine Use: Reports: Coffee, Energy Drinks, Soda, Tea ED ROS GENERAL - Review of Systems Review Of Systems: See Below Constitutional: Denies: Fever, Weakness HEENT: Denies: Ear Pain, Throat Pain, Vision Change Respiratory: Denies: Shortness of Breath, Cough Cardiovascular: Reports: Chest Pain (ribs). Denies: Lightheadedness, Syncope GI/Abdominal: Denies: Abdominal Pain : Denies: Flank Pain Musculoskeletal: Reports: Other (He says his left wrist has chronic problems and clicking but seems worse since he fell. He also has some left knee cap pain since a sports injury a few years ago. These have never been medically evaluated.). Denies: Neck Pain, Shoulder Pain, Arm Pain, Back Pain Skin: Denies: Cyanosis, Jaundice, Mottled, Pallor, Diaphoresis Neurological: Denies: Confusion, Dizziness, Headache, Seizure, Syncope, Trouble Speaking, Difficulty Walking Psychiatric: Denies: Agitation, Anxiety, Confusion ED EXAM, GENERAL - Physical Exam Exam: See Below Exam Limited By: No Limitations General Appearance: Alert, WD/WN, No Apparent Distress Eye Exam: Bilateral Eye: EOMI, Normal Inspection, PERRL Ears: Normal External Exam, Hearing Grossly Normal Nose: Normal Inspection, No Blood Throat/Mouth: Normal Inspection, Normal Lips, Normal Voice, No Airway Compromise Head: Atraumatic, Normocephalic Neck: Normal Inspection, Supple, Non-Tender, Full Range of Motion. No: Tender Lateral, Tender Midline Respiratory/Chest: No Respiratory Distress, Lungs Clear, Normal Breath Sounds, No Accessory Muscle Use, Other (Tender to palpation along two of the ribs inferior to left axilla but no crepitus, step-off or deformity. No ecchymosis or contusion present.) Cardiovascular: Regular Rate, Rhythm, No Murmur Back Exam: Normal Inspection, Full Range of Motion Extremities: Normal Range of Motion, Normal Capillary Refill, Other (Left wrist has full ROM including pronation and supination but a little pain with dorsiflexion. Nontender to palpation of distal radius/ulna or carpals/metacarpals.) Neurological: Alert, Oriented, CN II-XII Intact, Normal Cognition, No Motor/Sensory Deficits Psychiatric: Normal Affect, Normal Mood Skin Exam: Warm, Dry, Intact, Normal Color, No Rash Course - Vital Signs Last Recorded V/S: Last Vital Signs Temp 97.9 F 03/10/20 23:11 Pulse 94 03/10/20 23:11 Resp 24 H 03/10/20 23:11 BP 124/82 03/10/20 23:11 Pulse Ox 96 03/10/20 23:11 - Orders/Labs/Meds Orders: Active Orders 24 hr Category Date Time Status Ribs 2V w Chest Lt [CR] Stat Exams 03/10/20 23:02 Ordered - Re-Assessments/Exams Free Text/Narrative Re-Assessment/Exam: 03/11/20 00:03 CXR with ribs shows no evidence of pneumothorax or rib fractures. I discussed findings and expectations with patient. I advised follow up with his PCP if thi s worsens or fails to resolve over the next few days. He also has some other chronic issues that may need evaluation at some point. Discharged to home in stable condition. Departure - Departure Time of Disposition: 23:42 Disposition: Home, Self-Care 01 Condition: Good Clinical Impression: Rib pain on left side - Discharge Information Instructions: Chest Wall Pain, [id number] Referrals: Mercedes Conteh PA-C [Primary Care Provider] - Additional Instructions: Drink 8 cups of water daily. Take Ibuprofen 400-600 mg up to three times a day as needed for pain. You can also take Tylenol 500-1000 mg 3 times a day as needed. Follow up with your PCP if not improving over the next week or GARY if worsening. Go to ER if needed for sudden worsening. Sepsis Event Note (ED) - Evaluation Sepsis Screening Result: No Definite Risk - Focused Exam Vital Signs: Vital Signs Temp Pulse Resp BP Pulse Ox 03/10/20 23:11 97.9 F 94 24 H 124/82 96 - My Orders Last 24 Hours: My Active Orders 03/10/20 23:02 Ribs 2V w Chest Lt [CR] Stat - Assessment/Plan Last 24 Hours: My Active Orders 03/10/20 23:02 Ribs 2V w Chest Lt [CR] Stat
[2020-03-10] MEDS ORDERED: Ibuprofen 600 MG Tab PO ONE (23:49)
--- NOTE | 2020-03-11 08:31 | CR ---
[id number] RAD/RAD Ribs Left W PA Chest EXAM: RAD Ribs Left W PA Chest INDICATION: LEFT CHEST MUSCLE PAIN COMPARISON: April 08, 2019. DISCUSSION: Cardiomediastinal silhouette is normal in size and contour. Lungs are clear. No pleural effusion or pneumothorax. No radiographically evident rib fracture. IMPRESSION: Negative examination of the chest. Keith Cid MD 03/11/20 0830 Thank you for allowing us to participate in the care of your patient.
== END 2020-03-11 00:17 | disposition home or self-care (01) ==
LOC: KA.ED 22:40
DX: R07.81 Pleurodynia (principal); J45.909 Unspecified asthma, uncomplicated; E66.9 Obesity, unspecified; Z68.29 Body mass index [BMI] 29.0-29.9, adult
CPT/HCPCS: 71101; 99283; 99284; A9270

== ENCOUNTER 2020-04-01 19:36 | Emergency (ER) | payer SELFPAY ==
--- NOTE | 2020-04-01 19:40 | EDM.PDOC ---
ED HPI GENERAL MEDICAL PROBLEM - General Chief Complaint: General Stated Complaint: WEAKNESS Time Seen by Provider: 04/01/20 19:40 Source of Information: Reports: Patient, EMS History Limitations: Reports: No Limitations - History of Present Illness INITIAL COMMENTS - FREE TEXT/NARRATIVE: Kim, 29-year-old male, presents via ambulance accompanied by law enforcement due to weakness in his legs feeling jelly-leo. States that throughout the day he is blacked out at times. Denies any illicit drug, no prescription drug, no alcohol. Initially denies suicidal ideations or thoughts, stating he has not thought that way since his grandfather in . He needs to move to [place] as he has a girlfriend there that he is in love with and feels that would be the best thing he could do. When questioned as to how he would get there he states he will just start walking and he eventually would reach his destination. When I expressed my concern that this temperature in March in [place] as not to facilitate walking of any distance let alone all the way to [place] he states "it would work out." Despite denying suicidal ideation and or concerns he does feel slightly de pressed, and needs help. He never fully states a plan, but does speak of making statements of wanting to . Law enforcement shows 2 pages text messages were he stated suicidal ideation to his mother. They will be bringing as hard copies of that for the record. In review of past medical record it is found that on 10 March he presented for chest wall pain secondary of a fall he claimed at that time with rule out for fracture or extraneous event. He denied all review of systems prior to the incident. He was seen by telemedicine on the for what he claimed a 2-month history of cough shortness of breath and discomfort all which was denied 2 weeks prior to that. Was advised that he should seek transportation for testing for influenza as well as COVID-19 on the . On the he called and stated he was far too ill to seek evaluation of any kind as he could not walk to the facility for testing. No communication or follow-up has been since then which would be 6 days ago. Onset: Today Location: Reports: Lower Extremity, Left, Lower Extremity, Right Quality: Reports: Other (jello-leo) Severity: Moderate Improves with: Reports: None Worsens with: Reports: Other (thoughts) Associated Symptoms: Reports: No Other Symptoms Treatments CLOTH WEIGHER: Reports: Other (see below) (None) - Related Data Allergies Allergy/AdvReac Type Severity Reaction Status Date / Time No Known Allergies Allergy Verified 04/01/20 22:12 Home Meds: Home Meds Ibuprofen 200 mg PO QID 04/01/20 [History] Past Medical History - Past Health History Medical/Surgical History: Denies Medical/Surgical History HEENT History: Reports: Impaired Vision Other HEENT History: wears glasses Respiratory History: Reports: Asthma Other Respiratory History: supposed to be on an MDI Neurological History: Reports: Seizure Other Neuro History: Pt states he used to have seizures but was taken off meds approximately 5 yrs ago. 03/10/20: pt states he stopped taking all former medications; states last seizure was "a couple years ago"; states he has hx of "blackouts" Psychiatric History: Reports: Depression, Other (See Below) Other Psychiatric History: mentally slow Endocrine/Metabolic History: Reports: Obesity/BMI 30+ - Infectious Disease History Infectious Disease History: Reports: Chicken Pox, Influenza, Shingles - Past Surgical History Endocrine Surgical History: Reports: None Social & Family History - Family History Family Medical History: Unobtainable - Tobacco Use Tobacco Use Status *Q: Former Tobacco User - Caffeine Use Caffeine Use: Reports: Soda ED ROS GENERAL - Review of Systems Review Of Systems: Comprehensive ROS is negative, except as noted in HPI. ED EXAM, GENERAL - Physical Exam Exam: See Below Free Text/Narrative:: Alert, oriented, with a very flat affect. HEENT is negative discharge or deformity. PERRLA no icterus no injection, EOM intact. He hesitates to make eye contact. [place] moist mucous membranes. Neck soft supple no lymphadenopathy nor rigidity. Thorax is clear no wheezes, no crackles noted. Cardiac is S1 is 2 I do not appreciate any murmur rate is in the 80s to low 90s. Abdomen is soft no tenderness. rectal is deferred. No edema to the extremities skin is warm and dry he moves about with no difficulty. He seems to focus on this girlfriend in [place] and is continually checking his phone. EMS reports that in conversation with the girlfriend through text he took a cell free of himself and the ambulance to send to her proving that he was going to the hospital. #1 Interpretation EKG Date: 04/01/20 Time: 20:35 Rhythm: NSR [place]: Normal P-Wave: Present QRS: Normal ST-T: Normal QT: Normal Comparison: No Change (Compare 27 Mar 2017) Course - Vital Signs Last Recorded V/S: Last Vital Signs Temp 98.3 F 04/01/20 20:18 Pulse 97 04/01/20 20:35 Resp 20 04/01/20 20:18 BP 120/97 H 04/01/20 20:35 Pulse Ox 95 04/01/20 20:35 - Orders/Labs/Meds Orders: Active Orders 24 hr Category Date Time Status EKG Documentation Completion [RC] ASDIRECTED Care 04/01/20 19:58 Active Chest 1V Frontal [CR] Stat Exams 04/01/20 19:58 Ordered EKG 12 Lead [EK] Urgent Ther 04/01/20 19:58 Ordered Labs: Laboratory Tests 04/01/20 04/01/20 04/01/20 Range/Units 19:40 19:55 19:55 WBC 8.41 (5.00-10.00) 10^3/uL RBC 5.19 (4.50-6.00) 10^6/uL Hgb 14.7 (13.0-17.0) g/dL Hct 41.6 (40.0-52.0) % MCV 80.2 L D (82.0-92.0) fL MCH 28.3 (27.0-31.0) pg MCHC 35.3 (32.0-36.0) g/dL RDW 12.2 (11.5-14.5) % Plt Count 266 (150-400) 10^3/uL MPV 8.9 (7.4-10.4) fL Immature Gran % (Auto) 0.2 (0.0-5.0) % Neut % (Auto) 73.1 H (50.0-70.0) % Lymph % (Auto) 19.0 L (20.0-40.0) % Hendricks % (Auto) 6.2 (2.0-8.0) % Eos % (Auto) 1.1 (1.0-3.0) % Baso % (Auto) 0.4 (0.0-1.0) % Neut # (Auto) 6.15 (2.50-7.00) 10^3/uL Lymph # (Auto) 1.60 (1.00-4.00) 10^3/uL Hendricks # (Auto) 0.52 (0.10-0.80) 10^3/uL Eos # (Auto) 0.09 L (0.10-0.30) 10^3/uL Baso # (Auto) 0.03 (0.00-0.10) 10^3/uL Immature Gran # (Auto) 0.02 (0.00-0.50) 10^3/uL Sodium 138 (136-145) mmol/L Potassium 3.7 (3.5-5.1) mmol/L Chloride 103 (98-107) mmol/L Carbon Dioxide 27.0 (21.0-32.0) mmol/L Anion Gap 11.7 (5-15) mmol/L BUN 12 (7-18) mg/dL Creatinine 0.70 (0.51-1.17) mg/dL Est Cr Clr Drug Dosing 163.67 mL/min Estimated GFR (MDRD) > 60 mL/min Glucose 99 (70-140) mg/dL Calcium 9.1 (8.7-10.3) mg/dL Total Bilirubin 0.5 (0.2-1.0) mg/dL AST 15 (15-37) U/L ALT 24 (14-63) U/L Alkaline Phosphatase 85 (46-116) U/L Total Protein 7.5 (6.4-8.2) g/dL Albumin 4.23 (3.40-5.00) g/dL Urine Opiates Screen Negative (NEGATIVE) Ur Oxycodone Screen Negative (NEGATIVE) Urine Methadone Screen Negative (NEGATIVE) Ur Propoxyphene Screen Negative (NEGATIVE) Acetaminophen 0.0 L (10.0-30.0) ug/mL Ur Barbiturates Screen Negative (NEGATIVE) Ur Tricyclics Screen Negative (NEGATIVE) Ur Phencyclidine Scrn Negative (NEGATIVE) Ur Amphetamine Screen Negative (NEGATIVE) U Methamphetamines Scrn Negative (NEGATIVE) U Benzodiazepines Scrn Negative (NEGATIVE) U Cocaine Metab Screen Negative (NEGATIVE) U Marijuana (THC) Screen Negative (NEGATIVE) Ethyl Alcohol 3 H (NOT DETECTED) mg/dL - Re-Assessments/Exams Free Text/Narrative Re-Assessment/Exam: 04/01/20 20:44 I Pointblank confronted Tony on his stories which do not seem to be appropriate. The fact that he stated 2 months ago his injury was documented on 10 March, his denial of any symptoms fever chills or breathing issues with documented to which 25 March acted as if he is Covid and influenza positive, but he had refused to come in on the stating he would be in in a week if he did not get better. When I assessed him he states he has had the chest wall discomfort from the fall for 2 months and that he has had no Covid exposures, no Covid symptoms at any time with no breathing difficulty. Free Text/Narrative Re-Assessment/Exam: 04/01/20 23:51 Contacted previously been made with [facility] in [place] we are still awaiting further response 2-1/[address] [facility] [place] do the phone screening directly with Tony and feels that he is not in a position to require acute hospitalization at this time, and would benefit from having a responsible adult to monitor him for the night and then return contact for outpatient counseling and treatment. Further attempts with Freya returning a phone call that she had spoke directly with Tony's mother who blatantly refuses to accept Tony to her facility and monitor him for the night even though she insists that he gets treatment somewhere, preferring him going to [facility] that is not cooperating with the consult process. Departure - Departure Time of Disposition: 00:07 Disposition: Home, Self-Care 01 Condition: Good Clinical Impression: Suicidal ideation, Depression - Discharge Information *PRESCRIPTION DRUG MONITORING PROGRAM REVIEWED*: Not Applicable *COPY OF PRESCRIPTION DRUG MONITORING REPORT IN PATIENT CARLITOS: Not Applicable Referrals: Mercedes Conteh PA-C [Primary Care Provider] - Forms: ED Department Discharge Additional Instructions: You will be discharged to the care of your friend Gaston Kohli for the night. Tomorrow you will be called by [facility] at [phone] You need to advise whoever calls you that you had been in contact with them through our hospital and we had spoke with Freya for an evaluation intake. Freya felt that you should be seen on outpatient services and should be contacted by phone to arrange services. You agree to remain safe and not attempt to cause any harm to yourself or others. Sepsis Event Note (ED) - Focused Exam Vital Signs: Vital Signs Temp Pulse Resp BP Pulse Ox 04/01/20 20:35 97 120/97 H 95 04/01/20 20:18 98.3 F 97 20 133/98 H 96 04/01/20 20:15 97 139/99 H 95 04/01/20 20:00 97 20 138/95 H 96 04/01/20 19:40 98.3 F 96 18 133/98 H 96 - Problem List & Annotations (1) Depression SNOMED Code(s): 20648751 Code(s): F32.9 - MAJOR DEPRESSIVE DISORDER, SINGLE EPISODE, UNSPECIFIED Status: Chronic Priority: High Current Visit: Yes Qualifiers: Depression Type: reactive depression Qualified Code(s): F32.9 - Major depressive disorder, single episode, unspecified (2) Suicidal ideation SNOMED Code(s): 6928492 Code(s): R45.851 - SUICIDAL IDEATIONS Status: Acute Priority: High Current Visit: Yes (3) Attention disturbance SNOMED Code(s): 77114416 Code(s): R41.840 - ATTENTION AND CONCENTRATION DEFICIT Status: Acute Priority: High Current Visit: Yes (4) Rib pain on left side SNOMED Code(s): 556637693 Code(s): R07.81 - PLEURODYNIA Status: Acute Priority: High Current Visit: No - Problem List Review Problem List Initiated/Reviewed/Updated: Yes - My Orders Last 24 Hours: My Active Orders 04/01/20 19:58 EKG Documentation Completion [RC] ASDIRECTED Chest 1V Frontal [CR] Stat EKG 12 Lead [EK] Urgent - Assessment/Plan Last 24 Hours: My Active Orders 04/01/20 19:58 EKG Documentation Completion [RC] ASDIRECTED Chest 1V Frontal [CR] Stat EKG 12 Lead [EK] Urgent Plan: You will be discharged to the care of your friend Gaston Kohli for the night. Tomorrow you will be called by [facility] at [phone] You need to advise whoever calls you that you had been in contact with them through our hospital and we had spoke with Freya for an evaluation intake. Freya felt that you should be seen on outpatient services and should be contacted by phone to arrange services. You agree to remain safe and not attempt to cause any harm to yourself or others.
[2020-04-01 20:30] LABS: BARBITURATE SCREEN,URINE NEGATIVE (NEGATIVE); BENZODIAZEPINES SCREEN,URINE NEGATIVE (NEGATIVE); TCA SCREEN,URINE NEGATIVE (NEGATIVE); THC SCREEN,URINE 50 NG/ML NEGATIVE (NEGATIVE)
[2020-04-01 20:38] LABS: ANION GAP 11.7 mmol/L (5-15); CHLORIDE,CL 103 mmol/L (98-107); SODIUM,NA 138 mmol/L (136-145)
[2020-04-02 00:39] VITALS: BP 120/82; PULSE 98
== END 2020-04-02 | disposition home or self-care (01) ==
LOC: KA.ED 19:36
DX: F32.9 Major depressive disorder, single episode, unspecified (principal); J45.909 Unspecified asthma, uncomplicated; E66.9 Obesity, unspecified; Z87.891 Personal history of nicotine dependence; Z68.28 Body mass index [BMI] 28.0-28.9, adult
CPT/HCPCS: 71045; 80053; 80143; 80305-QW; 80307; 85025; 93005; 99284; 99285-25

== ENCOUNTER 2020-09-29 00:46 | Emergency (ER) | payer SELFPAY ==
--- NOTE | 2020-09-29 01:01 | EDM.PDOC ---
ED HPI GENERAL MEDICAL PROBLEM - General Chief Complaint: General Stated Complaint: Ankle pain Time Seen by Provider: 09/29/20 00:57 Source of Information: Reports: Patient - History of Present Illness INITIAL COMMENTS - FREE TEXT/NARRATIVE: Tony, 29-year-old male, presents emergency department with left anterior ankle pain. States that a week ago playing basketball he thought he may have injured it, and tonight the pain was unbearable unable to bear weight. He had contacted the facility to discuss this event and stated he would be ambulating to the hospital for evaluation. He arrives ambulatory with a slight limp but no major deficit is noted. He also speaks of 2 years ago a clicking in his left knee that occurs intermittently but has not occurred tonight. Onset: Gradual Onset Date: 09/21/20 Duration: Day(s): Location: Reports: Lower Extremity, Left Quality: Reports: Ache, Pressure Context: Reports: Activity Left Ankle Pain Score (Numeric/FACES): 7 - Related Data Allergies Allergy/AdvReac Type Severity Reaction Status Date / Time No Known Allergies Allergy Verified 09/29/20 01:16 Home Meds: Home Meds Ibuprofen 200 mg PO QID 04/01/20 [History] Past Medical History - Past Health History Medical/Surgical History: Denies Medical/Surgical History HEENT History: Reports: Impaired Vision Other HEENT History: wears glasses Respiratory History: Reports: Asthma Other Respiratory History: supposed to be on an MDI Musculoskeletal History: Reports: Other (See Below) (Joint pain) Neurological History: Reports: Seizure Other Neuro History: Pt states he used to have seizures but was taken off meds approximately 5 yrs ago. 04/01/20: pt states he stopped taking all former medications; states last seizure was "a couple years ago"; states he has hx of "blackouts" Psychiatric History: Reports: Depression, Other (See Below) Other Psychiatric History: mentally slow Endocrine/Metabolic History: Reports: Obesity/BMI 30+ - Infectious Disease History Infectious Disease History: Reports: Chicken Pox, Influenza, Shingles - Past Surgical History Other HEENT Surgeries/Procedures: one wisdom tooth removed Endocrine Surgical History: Reports: None Social & Family History - Family History Family Medical History: No Pertinent Family History - Caffeine Use Caffeine Use: Reports: Soda ED ROS GENERAL - Review of Systems Review Of Systems: Comprehensive ROS is negative, except as noted in HPI. ED EXAM, GENERAL - Physical Exam Exam: See Below Free Text/Narrative:: Alert oriented in no acute distress. HEENT is negative discharge deformity. There is no respiratory distress with no audible wheezes or crackles noted. Radial pulses present cardiac is regular. Tenderness is noted to the anterior left ankle mortise region with trace swelling. There is no significant discomfort to the malleolus laterally with minimal tenderness medially. There is no crepitus to flexion nor extension of the foot. No pain to palpation of the knee. Course - Vital Signs Last Recorded V/S: Last Vital Signs Temp 96.2 F L 09/29/20 00:50 Pulse 89 09/29/20 01:26 Resp 20 09/29/20 00:50 BP 138/87 09/29/20 00:50 Pulse Ox 96 09/29/20 01:26 - Orders/Labs/Meds Orders: Active Orders 24 hr Category Date Time Status Ankle Min 3V Lt [CR] Stat Exams 09/29/20 01:00 Ordered - Re-Assessments/Exams Free Text/Narrative Re-Assessment/Exam: 09/29/20 02:12 Discussed in detail that chronic knee issues need to be reviewed through the clinic as they may require an MRI as there appears to be no deficit on examination this evening. Departure - Departure Time of Disposition: 01:34 Disposition: Home, Self-Care 01 Condition: Good Clinical Impression: Ankle pain, left Qualifiers: Chronicity: chronic Qualified Code(s): M25.572 - Pain in left ankle and joints of left foot - Discharge Information *PRESCRIPTION DRUG MONITORING PROGRAM REVIEWED*: Not Applicable *COPY OF PRESCRIPTION DRUG MONITORING REPORT IN PATIENT CARLITOS: Not Applicable Instructions: Musculoskeletal Pain, Ankle Pain Referrals: Brody Singh NP [Nurse Practitioner] - Forms: ED Department Discharge Additional Instructions: The x-rays appear normal with no fracture nor dislocation noted. It is likely that you have sprained this and caused irritation. Ice, elevate as much as possible to help control any further swelling and your discomfort. You may take ibuprofen or Tylenol for the discomfort. You will need to follow-up with your clinic in the next week if this does not return to normal. When you were at your clinic please talk to them about your left knee clicking/popping as it may require an MRI for full diagnostic ability. Sepsis Event Note (ED) - Focused Exam Vital Signs: Vital Signs Temp Pulse Resp BP Pulse Ox 09/29/20 01:26 89 96 09/29/20 00:50 96.2 F L 104 H 20 138/87 96 - Problem List & Annotations (1) Ankle pain, left SNOMED Code(s): 586569695, 764516144 Code(s): M25.572 - PAIN IN LEFT ANKLE AND JOINTS OF LEFT FOOT Status: Acute Priority: Medium Qualifiers: Chronicity: chronic Qualified Code(s): M25.572 - Pain in left ankle and joints of left foot; G89.29 - Other chronic pain (2) Clicking knee SNOMED Code(s): 238594887 Code(s): R29.898 - OTH SYMPTOMS AND SIGNS INVOLVING THE MUSCULOSKELETAL SYSTEM Status: Chronic Priority: Low - Problem List Review Problem List Initiated/Reviewed/Updated: Yes - My Orders Last 24 Hours: My Active Orders 09/29/20 01:00 Ankle Min 3V Lt [CR] Stat - Assessment/Plan Last 24 Hours: My Active Orders 09/29/20 01:00 Ankle Min 3V Lt [CR] Stat Plan: The x-rays appear normal with no fracture nor dislocation noted. It is likely that you have sprained this and caused irritation. Ice, elevate as much as possible to help control any further swelling and your discomfort. You may take ibuprofen or Tylenol for the discomfort. You will need to follow-up with your clinic in the next week if this does not return to normal. When you were at your clinic please talk to them about your left knee clicking/popping as it may require an MRI for full diagnostic ability.
[2020-09-29 01:16] VITALS: BP 138/87
[2020-09-29 01:27] VITALS: PULSE 89
--- NOTE | 2020-09-29 08:25 | CR ---
[id number] RAD/RAD Ankle Left 3V Min Exam: RAD Ankle Left 3V Min Indication:ANKLE JOINT PAIN, ANTERIOR Comparison: None. Discussion/Impression: Bones in normal alignment. No fracture, AVN, or erosive changes. Joint spaces are well-preserved. Bone mineralization is normal. Keith Cid MD 09/29/20 0825 Thank you for allowing us to participate in the care of your patient.
== END 2020-09-29 01:45 | disposition home or self-care (01) ==
LOC: KA.ED 00:46
DX: M25.572 Pain in left ankle and joints of left foot (principal); E66.9 Obesity, unspecified; Z68.30 Body mass index [BMI] 30.0-30.9, adult; X50.1XXA Overexertion from prolonged static or awkward postures, initial encounter
CPT/HCPCS: 73610-LT; 99283; 99283-25

== ENCOUNTER 2020-12-24 00:05 | Emergency (ER) | payer SELFPAY ==
[2020-12-24 00:45] VITALS: BP 134/91; PULSE 99
[2020-12-24] MEDS ORDERED: Ibuprofen 400 MG Tab ONE (01:47)
[2020-12-24] MEDS ORDERED: Ibuprofen 400 MG Tab PO ONE (01:49)
--- NOTE | 2020-12-24 02:03 | EDM.PDOC ---
ED HPI GENERAL MEDICAL PROBLEM - General Chief Complaint: General Stated Complaint: R earache, L shoulder pain Time Seen by Provider: 12/24/20 01:20 Source of Information: Reports: Patient History Limitations: Reports: No Limitations - History of Present Illness INITIAL COMMENTS - FREE TEXT/NARRATIVE: Jose L is a 30-year-old male who presents emergency room for chronicity of left shoulder pain. He reports he fell about 2 years ago when he slipped on the ice. He denies any limitation with regards to the arm or shoulder. He denies any numbness or tingling. He also complains of an earache of his right ear today. Reports he gets frequent headaches. He has a history of a seizure disorder upon review of his past medical history. No other complaints are voiced at today. Onset: Unknown/Unsure Duration: Chronic Location: Reports: Head, Upper Extremity, Left Quality: Reports: Ache Severity: Mild Improves with: Reports: None Worsens with: Reports: None Associated Symptoms: Reports: No Other Symptoms Right Ear Pain Score (Numeric/FACES): 10 Left Shoulder Pain Score (Numeric/FACES): 10 - Related Data Allergies Allergy/AdvReac Type Severity Reaction Status Date / Time No Known Allergies Allergy Verified 12/24/20 00:37 Home Meds: Home Meds Ibuprofen 200 mg PO QID 04/01/20 [History] Albuterol Sulfate [Albuterol Sulfate HFA] 1 - 2 puff INH Q4H PRN 12/24/20 [History] Ondansetron [Zofran ODT] 4 mg PO TID PRN 12/24/20 [History] Past Medical History - Past Health History Medical/Surgical History: Denies Medical/Surgical History HEENT History: Reports: Impaired Vision Other HEENT History: wears glasses Respiratory History: Reports: Asthma Other Respiratory History: supposed to be on an MDI Musculoskeletal History: Reports: Other (See Below) Other Musculoskeletal History: chronic left shoulder pain Neurological History: Reports: Seizure, Other (See Below) Other Neuro History: Pt states he used to have seizures but was taken off meds approximately 5 yrs ago. 04/01/20: pt states he stopped taking all former medications; states last seizure was "a couple years ago"; states he has hx of "blackouts". pseudoseizures Psychiatric History: Reports: Depression, Other (See Below) Other Psychiatric History: mentally slow Endocrine/Metabolic History: Reports: Obesity/BMI 30+ - Infectious Disease History Infectious Disease History: Reports: Chicken Pox, Influenza, Shingles - Past Surgical History Other HEENT Surgeries/Procedures: one wisdom tooth removed Endocrine Surgical History: Reports: None Social & Family History - Family History Family Medical History: No Pertinent Family History - Tobacco Use Tobacco Use Status *Q: Former Tobacco User Used Tobacco, but Quit: Yes Month/Year Tobacco Last Used: October 2020 - Caffeine Use Caffeine Use: Reports: Soda - Recreational Drug Use Recreational Drug Use: No ED ROS GENERAL - Review of Systems Review Of Systems: Comprehensive ROS is negative, except as noted in HPI. ED EXAM, GENERAL - Physical Exam Exam: See Below Exam Limited By: No Limitations General Appearance: Alert, WD/WN, No Apparent Distress Eye Exam: Bilateral Eye: EOMI Ears: Normal External Exam, Normal Canal, Hearing Grossly Normal, Normal TMs Ear Exam: Bilateral Ear: TM normal Nose: Normal Inspection Throat/Mouth: Normal Inspection, Normal Voice Head: Atraumatic, Normocephalic Neck: Normal Inspection Respiratory/Chest: No Respiratory Distress GI/Abdominal: Soft Back Exam: Normal Inspection Extremities: Normal Inspection, Normal Range of Motion, Non-Tender Neurological: Alert, No Motor/Sensory Deficits Psychiatric: Flat Affect Skin Exam: Warm, Dry, Intact, Normal Color, No Rash Lymphatic: No Adenopathy Course - Vital Signs Last Recorded V/S: Last Vital Signs Temp 97.0 F 12/24/20 00:10 Pulse 99 12/24/20 00:10 Resp 18 12/24/20 00:10 BP 134/91 H 12/24/20 00:10 Pulse Ox 95 12/24/20 00:10 - Orders/Labs/Meds Orders: Active Orders 24 hr Category Date Time Status Shoulder Comp Lt [CR] Stat Exams 12/24/20 01:18 Ordered Meds: Medications Discontinued Medications Generic Name Dose Route Start Last Admin Trade Name Roderick PRN Reason Stop Dose Admin Ibuprofen Confirm 12/24/20 01:47 12/24/20 01:52 Ibuprofen 400 Mg Tab Administered 12/24/20 01:48 Not Given Dose 800 mg .ROUTE .STK-MED ONE Ibuprofen 800 mg 12/24/20 01:49 12/24/20 01:50 Ibuprofen 400 Mg Tab PO 12/24/20 01:50 800 mg ONETIME ONE Administration - Radiology Interpretation Free Text/Narrative:: X-ray 1 view left shoulder Impression: Normal left shoulder radiograph. No fracture, no dislocation Departure - Departure Time of Disposition: 02:03 Disposition: Home, Self-Care 01 Condition: Good Clinical Impression: Chronic left shoulder pain, Earache, right - Discharge Information Instructions: Shoulder Pain, Earache, Adult Referrals: Melissa Fraga STOPPER MAKER HELPER [Primary Care Provider] - Forms: ED Department Discharge Care Plan Goals: 1. Ibuprofen 800 mg 3 times daily as needed for shoulder pain or ear ache. 2. Encourage the patient to use the primary care as his source of healthcare and to follow-up with his primary care provider for further nonemergent appointments. Sepsis Event Note (ED) - Evaluation Sepsis Screening Result: No Definite Risk - Focused Exam Vital Signs: Vital Signs Temp Pulse Resp BP Pulse Ox 12/24/20 00:10 97.0 F 99 18 134/91 H 95 - My Orders Last 24 Hours: My Active Orders 12/24/20 01:18 Shoulder Comp Lt [CR] Stat - Assessment/Plan Last 24 Hours: My Active Orders 12/24/20 01:18 Shoulder Comp Lt [CR] Stat Assessment:: Chronic left shoulder pain Right earache Plan: 1. Ibuprofen 800 mg 3 times daily as needed for shoulder pain or ear ache. 2. Encourage the patient to use the primary care as his source of healthcare and to follow-up with his primary care provider for further nonemergent appointments.
--- NOTE | 2020-12-27 09:25 | CR ---
[id number] RAD/RAD Shoulder Left 2V Min EXAM: 4 VIEWS LEFT SHOULDER. INDICATION: LEFT SHOULDER PAIN COMPARISON: None. DISCUSSION: No fracture, dislocation or other osseous abnormality. IMPRESSION: 1. Negative exam. Ryne Olivera DO 12/27/20 0912 Thank you for allowing us to participate in the care of your patient.
== END 2020-12-24 02:10 | disposition home or self-care (01) ==
LOC: SUPCPDRO 00:05 → KA.ED 00:05
DX: G89.29 Other chronic pain (principal); M25.512 Pain in left shoulder; H92.01 Otalgia, right ear; E66.9 Obesity, unspecified; Z68.37 Body mass index [BMI] 37.0-37.9, adult; Z87.891 Personal history of nicotine dependence
CPT/HCPCS: 73030-LT; 99283; 99283-25; A9270-GY

== ENCOUNTER 2021-07-14 03:27 | Emergency (ER) | payer SELFPAY ==
[2021-07-14 03:37] VITALS: PULSE 94
[2021-07-14 05:25] VITALS: BP 112/80
== END 2021-07-14 04:20 | disposition home or self-care (01) ==
LOC: KA.ED 03:27
DX: M25.572 Pain in left ankle and joints of left foot (principal); J45.909 Unspecified asthma, uncomplicated; E66.9 Obesity, unspecified; Z68.32 Body mass index [BMI] 32.0-32.9, adult; Z79.899 Other long term (current) drug therapy
CPT/HCPCS: 99283

== ENCOUNTER 2021-12-28 01:21 | Emergency (ER) | payer SELFPAY ==
[2021-12-28] MEDS: Ketorolac 60 MG/2 ML SDV IM ONE (01:42)
[2021-12-28 01:51] VITALS: BP 123/82; PULSE 100
== END 2021-12-28 02:10 | disposition home or self-care (01) ==
LOC: KA.ED 01:21
DX: S46.912A Strain of unspecified muscle, fascia and tendon at shoulder and upper arm level, left arm, initial encounter (principal); E66.9 Obesity, unspecified; Z68.36 Body mass index [BMI] 36.0-36.9, adult
CPT/HCPCS: 96372; 99283; J1885